=== PATIENT | female | born 1950 | race Caucasian/White ===

== ENCOUNTER 2021-01-28 15:17 | Inpatient (IN) | payer SELFPAY ==
[~2021-01-28] VITALS: Ht 162.6 cm; Wt 97.1 kg
[2021-01-28] MEDS: ENOXAPARIN 40 MG/0.4 ML SYR SUBQ SCH (05:30)
[2021-01-28] MEDS: FUROSEMIDE 20 MG/2 ML VIAL IVP SCH ×2 (05:37→21:00)
[2021-01-28 15:17] VITALS: BP 142/72
--- NOTE | 2021-01-28 15:17 | NUR ---
BIBA to bed 02
--- NOTE | 2021-01-28 15:20 | NUR ---
70 y/o F BIBA from mobile home c/o SOB x 1.5 days worsening this morning. EMS states pt on home O2 2L by NC SpO2 88%, pt received 2 breathing tx 10mg Albuterol prior to arrival SpO2 96% @ 6L. Pt with 4-5 word sentences with accessory muscle use. Pt reports R flank and R back pain d/t SOB. Lung sounds bilateral wheezes upper lobes. Pt placed onto color television console monitor; tachycardia @ 114, RR 39. Pt on 6L by NC SpO2 96%. Pt denies chest pain, fever, chills, abdominal pain, nausea, vomiting. Bed locked in lowest position, side rails x 2 for pt safety. PMH: DM, HTN, lung cancer, asthma, seizures Meds: dilantin, phenobarbital NKDA
--- NOTE | 2021-01-28 15:20 | NUR ---
RAD at bedside
[2021-01-28] MEDS ORDERED: ALBUTEROL HFA MDI 90 MCG/ACTUATION 8 GM INH ONE (15:25)
[2021-01-28] MEDS ORDERED: IPRATROPIUM 0.02% 0.5 MG/2.5 ML NEBU INH ONE (15:25)
[2021-01-28] MEDS ORDERED: DEXAMETHASONE 10 MG/ML VIAL IVP ONE (15:25)
[2021-01-28] MEDS ORDERED: ALBUTEROL 0.083% 2.5 MG/3 ML NEBU INH ONE ×3 (15:30→19:55)
--- NOTE | 2021-01-28 15:30 | NUR ---
EMT at bedside for EKG
--- NOTE | 2021-01-28 15:37 | NUR ---
[facility] THERAPY AND RESPIRATORY DRUGS GIVEN ORDERED
--- NOTE | 2021-01-28 15:45 | NUR ---
RT states pt on 5L by NC at this time. SpO2 97% on 5L.
--- NOTE | 2021-01-28 15:50 | NUR ---
Unable to obtain IV access. Dr. Dent made aware and received verbal order to give Decadron IM.
--- NOTE | 2021-01-28 16:11 | NUR ---
ULTRASOUND AND LAB AT PATIENT BEDSIDE
[2021-01-28] MEDS ORDERED: VANCOMYCIN 1,000 MG in DEXTROSE 5% 250 ML IV ONE (16:25)
[2021-01-28] MEDS ORDERED: CEFEPIME 1,000 MG in DEXTROSE 5% 50 ML IV ONE (16:25)
--- NOTE | 2021-01-28 16:25 | NUR ---
Ultrasound guided IV unsuccessful at this time
--- NOTE | 2021-01-28 16:40 | NUR ---
gear milling machine set up operator and PA Roper at bedside for IV access
[2021-01-28] MEDS ORDERED: CEFEPIME 1,000 MG VIAL ONE (16:41)
[2021-01-28 17:01] LABS: BASOPHILS # (AUTO) 0.1 K/uL (0.00-0.22); BASOPHILS % (AUTO) 0.7 % (0.0-2.0); EOSINOPHILS % (AUTO) 0.3 % (0.0-4.0); HEMATOCRIT 38.9 % (36-48); HEMOGLOBIN 12.7 g/dL (12.0-16.0); LYMPHOCYTES # (AUTO) 0.9 K/uL (2.5-16.5); LYMPHOCYTES % (AUTO) 8.4 % (20.5-51.1); MEAN CORPUSCULAR HEMOGLOBIN 26 pg (27-31); MEAN CORPUSCULAR HGB CONC 33 g/dL (33-37); MEAN CORPUSCULAR VOLUME 80.3 fL (80-94); MONOCYTES # (AUTO) 0.9 K/uL (0.8-1.0); MONOCYTES % (AUTO) 8.7 % (1.7-9.3); NEUTROPHILS # (AUTO) 8.4 K/uL (1.8-7.7); NEUTROPHILS % (AUTO) 81.9 % (42.2-75.2); PLATELET COUNT (AUTO) 483 K/uL (140-450); RED BLOOD CELL COUNT(AUTO) 4.85 MIL/uL (4.20-5.40); RED CELL DISTRIBUTION WIDTH 15.8 % (11.6-13.7); WHITE BLOOD COUNT (AUTO) 10.3 K/uL (4.8-10.8)
--- NOTE | 2021-01-28 17:20 | NUR ---
Patient with increased labored breathing, tachpneic at 39. RT paged and Dr. Dent made aware.
[2021-01-28] MEDS ORDERED: VANCOMYCIN 1,000 MG VIAL ONE (17:22)
--- NOTE | 2021-01-28 17:23 | NUR ---
Dr. Dent reevaluating patient at bedside
--- NOTE | 2021-01-28 17:27 | NUR ---
RT AT PATIENT BEDSIDE FOR BIPAP
[2021-01-28 17:32] LABS: ALBUMIN 2.7 g/dL (3.4-5.0); ANION GAP 16.3 (8-16); CARBON DIOXIDE 21.9 mmol/L (21-32); CREATININE 0.6 mg/dL (0.6-1.3); POTASSIUM 4.2 mmol/L (3.5-5.1); TOTAL BILIRUBIN 0.2 mg/dL (0.0-1.0)
[2021-01-28 17:33] VITALS: BP 128/50
--- NOTE | 2021-01-28 17:35 | NUR ---
RT states patient fighting BiPAP mask. SpO2 96% on mask at this time. Dr. Dent made aware and verbal order received for Ativan 1mg IVP.
[2021-01-28] MEDS ORDERED: LORazepam 2 MG/ML VIAL IVP ONE (17:40)
[2021-01-28] MEDS ORDERED: LORazepam 2 MG/ML VIAL ONE (17:40)
[2021-01-28] MEDS ORDERED: MAG SULF 2000 MG/WATER PREMIX 50 ML IV ONE (17:50)
--- NOTE | 2021-01-28 17:57 | NUR ---
[facility] THERAPY AND RESPIRATORY DRUGS ORDERED VIA INLINE
[2021-01-28] MEDS ORDERED: AZITHROMYCIN 500 MG in DEXTROSE 5% 250 ML IV ONE (18:05)
[2021-01-28] MEDS ORDERED: NACL 0.9% 1,000 ML IV ONE (18:40)
--- NOTE | 2021-01-28 18:50 | NUR ---
Vancomycin paused with ~175ml left to start NS BOLUS & Mg.
--- NOTE | 2021-01-28 18:55 | NUR ---
LAB COLLECTING SPECIMENS AT BEDSIDE
[2021-01-28 19:09] VITALS: BP 105/61
[2021-01-28] MEDS ORDERED: MAG SULF 2000 MG/WATER PREMIX 50 ML IV SCH (19:20)
[2021-01-28] MEDS ORDERED: ALBUTEROL SULFATE/IPRATROPIU 3 ML SOL IH SCH (19:20)
[2021-01-28] MEDS ORDERED: ALBUTEROL SULFATE/IPRATROPIU 3 ML SOL IH PRN ×2 (19:20→21:45)
--- NOTE | 2021-01-28 19:23 | NUR ---
Pt report given to HUONG ONEIL. Transfer of care at this time.
--- NOTE | 2021-01-28 19:23 | NUR ---
Received report from Andra FONG for continuity of care
--- NOTE | 2021-01-28 19:24 | NUR ---
Patient appears to be resting comfortably in bed-- high fowlers, eyes closed with bipap going. Fluids and medications runnin through the left wrist. AAOx4. patient has increased RR up to 40s. Patient on monitor, safety measures are in place, and will continue to monitor patient.
[2021-01-28] MEDS ORDERED: POTASSIUM CHLORIDE 10 MEQ TABER PO PRN (19:30)
[2021-01-28] MEDS ORDERED: HYDROcodone/APAP 5/325 MG 1 TAB TAB PO PRN (19:30)
[2021-01-28] MEDS ORDERED: MAG SULF 2000 MG/WATER PREMIX 50 ML IV PRN (19:30)
[2021-01-28] MEDS ORDERED: MORPHINE SULFATE 2 MG/ML SYR IVP PRN (19:30)
[2021-01-28] MEDS ORDERED: DOCUSATE SODIUM 100 MG GELCAP PO PRN (19:30)
[2021-01-28] MEDS ORDERED: SODIUM PHOS / POTASSIUM PHOS 1 PKT PDR PO PRN (19:30)
[2021-01-28] MEDS ORDERED: ZOLPIDEM 5 MG TAB PO PRN (19:30)
[2021-01-28] MEDS ORDERED: ONDANSETRON 4 MG/2 ML VIAL IVP PRN (19:30)
[2021-01-28] MEDS: NACL 0.9% 1,000 ML IV SCH (19:30)
--- NOTE | 2021-01-28 19:32 | NUR ---
Report and transfer of care endorsed to HUONG Betancourt.
[2021-01-28] MEDS ORDERED: AZITHROMYCIN 500 MG INJ VIAL IV ONE (19:33)
--- NOTE | 2021-01-28 19:42 | NUR ---
patient pulled off bipap and screaming, patient is agitated, further increase respirations to 50s, patient desaturated to 79% RA when bipap was off. Patient unconsolable and started c/o c/p sudden onset-- Called Lisseth APARICIO. Addendum: 01/28/21 at 2200 by [email or web address] patient sudden change in condition
--- NOTE | 2021-01-28 19:53 | NUR ---
Received orders from Lisseth APARICIO-- nitro sublingual q5mins up until 3 doses, lovonox 40mg subq BID, EKG, and consult with Dr. Silverio Pederson.
[2021-01-28] MEDS ORDERED: NITROGLYCERIN 0.4 MG TAB SL ONE (19:58)
[2021-01-28] MEDS ORDERED: NITROGLYCERIN 0.4 MG TAB SL PRN (20:05)
[2021-01-28] MEDS: LORazepam 2 MG/ML VIAL IM/IVP PRN ×2 (20:22→22:36)
--- NOTE | 2021-01-28 20:24 | NUR ---
patient agitated, increased WOB, refusing use of bipap, and patient in the way of interventions.
[2021-01-28] MEDS ORDERED: INTUBATION KIT MC ONE (20:33)
[2021-01-28] MEDS ORDERED: ETOMIDATE 20 MG/10 ML VIAL IVP SCH (20:35)
[2021-01-28] MEDS ORDERED: ROCURONIUM 50 MG/5 ML VIAL IV SCH (20:35)
[2021-01-28 20:40] LABS: PROTHROMBIN TIME 10.6 secs (10.8-13.4)
--- NOTE | 2021-01-28 20:44 | NUR ---
intubated patient, and tube in at this time. called xray for placement.
--- NOTE | 2021-01-28 20:50 | NUR ---
Patient will be admitted to care of Lisseth APARICIO . Admited to ICU. Will go to room 2 ICU. Belongings list completed. Report to Malini BORJA, and Osvaldo BORJA.
[2021-01-28 20:52] LABS: PHOSPHORUS 2.6 mg/dL (2.5-4.9); THYROID STIMULATING HORMONE 1.1 uIU/mL (0.34-3.74)
[2021-01-28] MEDS: PIPERACILLIN/TAZOBACTAM 3.375 GM in DEXTROSE 5% 50 ML IV SCH (21:00)
--- NOTE | 2021-01-28 21:00 | NUR ---
RECEIVED REPORT FROM NIGHT CHHA. PT ETT TO VENT FIO2 @100%, VT @450, RATE @20, AND PEEP @8. 24G TO RIGHT WRIST. TWO OPEN WOUNDS TO RIGHT INGUINAL AREA. PROTRUSION VISIBLE IN OPENING OF VAGINA. +4 PITTING EDEMA TO BLE. INITIAL ASSESSMENT COMPLETED. SAFETY MEASURES IN PLACE. BED IN LOWEST POSITION AND CALL LIGHT WITHIN REACH. WILL CONTINUE TO MONITOR
[2021-01-28] MEDS ORDERED: PROPOFOL 1000 MG/100 ML PREMIX 100 ML IV ONE (21:05)
--- NOTE | 2021-01-28 21:10 | NUR ---
AT BEDSIDE, PT WAS UNCOOPERATIVE WITH BIPAP. PT WAS STILL IN RESPIRATORY DISTRESSED. DR. OVIEDO WAS CALLED TO BEDSIDE AND PT WAS INTUBATED. PT WAS SUCCESSFULLY INTUBATED @ 2043 WITH ETT SIZE 8.0 AND SECURE @ 21CM @ TEETH. CXR TAKEN AT BEDSIDE, ETT SEEM TO BE IN GOOD POSITION. WILL WAIT FOR OFFICIAL INTERPRETATION. PT WAS TRANSPORTED TO ICU. VENTILATION AND OXYGENATION WAS PROVIDED VIA BVM. PT WAS CONNECTED TO VENT IN ICU. VENT PLUGGED IN RED OUTLET. ALARM SET AND AUDIBLE. WILL CONTINUE TO MONITOR.
[2021-01-28 23:00] VITALS: BP 99/48
[2021-01-28] MEDS: ALBUTEROL SULFATE/IPRATROPIU 3 ML SOL IH SCH (23:01)
--- NOTE | 2021-01-28 23:34 | NUR ---
ER MD AND RT AT BEDSIDE FOR CENTRAL LINE PLACEMENT.
[2021-01-29] VITALS (29 sets, daily range): BP systolic 84–134; BP diastolic 34–70
--- NOTE | 2021-01-29 | NUR ---
RAD AT BEDSIDE FOR CHEST XRAY. WILL CONTINUE TO MONITOR.
--- NOTE | 2021-01-29 01:25 | NUR ---
TITRATED PT'S FiO2 FROM 100% TO 70%. SPO2 100%. NO RESPIRATORY DISTRESSED NOTED AT THIS TIME. PT TOLERATING WELL AT THIS MOMENT. RN NOTIFIED ABOUT CHANGES. WILL CONTINUE TO MONITOR.
[2021-01-29] MEDS ORDERED: PIPERACILLIN/TAZOBACTAM 3.375 GM VIAL IV ONE (02:05)
[2021-01-29] MEDS: PIPERACILLIN/TAZOBACTAM 3.375 GM in DEXTROSE 5% 50 ML IV SCH ×3 (03:00→20:22)
[2021-01-29] MEDS ORDERED: fentaNYL citrate 1 MG in NACL 0.9% 80 ML IV PRN (03:25)
[2021-01-29] MEDS ORDERED: NOREPINEPHRINE 4 MG/4 ML VIAL IV ONE ×2 (03:32→23:30)
[2021-01-29] MEDS ORDERED: fentaNYL citrate 0.05 MG/ML VIAL ONE (03:38)
[2021-01-29] MEDS: ALBUTEROL SULFATE/IPRATROPIU 3 ML SOL IH SCH ×6 (04:22→23:00)
--- NOTE | 2021-01-29 04:42 | NUR ---
TITRATED FiO2 FROM 70% TO 60%. PT TOLERATING WELL AT THIS TIME. RN NOTIFIED. WILL CONTINUE TO MONITOR PT
[2021-01-29] MEDS: NACL 0.9% 1,000 ML IV SCH ×2 (05:30→15:30)
[2021-01-29 06:42] LABS: ALBUMIN 2.3 g/dL (3.4-5.0); ANION GAP 13.1 (8-16); CARBON DIOXIDE 24.7 mmol/L (21-32); CREATININE 0.6 mg/dL (0.6-1.3); MAGNESIUM 2.2 mg/dL (1.8-2.4); POTASSIUM 3.8 mmol/L (3.5-5.1); TOTAL BILIRUBIN 0.2 mg/dL (0.0-1.0)
[2021-01-29 07:26] LABS: BASOPHILS # (AUTO) 0.1 K/uL (0.00-0.22); BASOPHILS % (AUTO) 0.4 % (0.0-2.0); EOSINOPHILS # (AUTO) 0.1 K/uL (0-0.4); EOSINOPHILS % (AUTO) 0.7 % (0.0-4.0); HEMATOCRIT 35.3 % (36-48); HEMOGLOBIN 11.3 g/dL (12.0-16.0); LYMPHOCYTES # (AUTO) 1.6 K/uL (2.5-16.5); MEAN CORPUSCULAR HEMOGLOBIN 26 pg (27-31); MEAN CORPUSCULAR HGB CONC 32 g/dL (33-37); MEAN CORPUSCULAR VOLUME 79.9 fL (80-94); MONOCYTES # (AUTO) 1.3 K/uL (0.8-1.0); MONOCYTES % (AUTO) 9.7 % (1.7-9.3); NEUTROPHILS # (AUTO) 10.1 K/uL (1.8-7.7); NEUTROPHILS % (AUTO) 77.2 % (42.2-75.2); PLATELET COUNT (AUTO) 388 K/uL (140-450); RED BLOOD CELL COUNT(AUTO) 4.42 MIL/uL (4.20-5.40); RED CELL DISTRIBUTION WIDTH 15.8 % (11.6-13.7); WHITE BLOOD COUNT (AUTO) 13.1 K/uL (4.8-10.8)
--- NOTE | 2021-01-29 07:36 | NUR ---
RECEIVED BEDSIDE REPORT FROM JACEK BORJA FOR CONTINUITY OF CARE. PT IS SEDATED, LYING SUPINE IN THE BED. EYES CLOSED, PERRL 3MM. NGT TO R NARE IN PLACE. ETT TO VENT FIO2 40%, TV 400, R 20, PEEP 8. RIJ TRIPLE LUMEN CENTRAL LINE IN PLACE, PATENT, INTACT, NO S/S OF INFECTION. RUNNING PROPOFOL AT 45 MCG/KG/MIN, FENTANYL AT 0.5 MCG/KG/H, LEVOPHED AT 9 MCG/MIN, AND NS AT 5 ML/H. LUNG SOUNDS CLEAR THROUGHOUT. HEART SOUNDS S1&2. BOWEL SOUNDS ACTIVE IN ALL 4 QUADRANTS. NO F/C IN PLACE. 2 INGUINAL WOUNDS ON R SIDE, DRESSINGS INTACT. BRUISES TO BUE. GENERALIZED WEAKNESS BUE AND BLE. +4 PITTING EDEMA BLE. INITIAL ASSESSMENT COMPLETED. ALL SAFETY PRECAUTIONS MET. STANDARD PRECAUTIONS IN PLACE. CALL LIGHT WITHIN REACH. WILL CONTINUE TO MONITOR.
--- NOTE | 2021-01-29 07:36 | NUR ---
REPORT GIVEN TO DAYSHIFT RN FOR CONTINUITY OF CARE.
[2021-01-29] MEDS: PROPOFOL 1000 MG/100 ML PREMIX 100 ML IV PRN ×3 (07:50→19:01)
[2021-01-29] MEDS ORDERED: DEXTROSE 50% 50 ML SYR IVP PRN (08:25)
--- NOTE | 2021-01-29 08:30 | NUR ---
SEEN AND EXAMINED BY DR ANGULO.
[2021-01-29] MEDS: FUROSEMIDE 20 MG/2 ML VIAL IVP SCH ×2 (09:02→20:22)
[2021-01-29] MEDS: ENOXAPARIN 40 MG/0.4 ML SYR SUBQ SCH ×2 (09:03→20:26)
--- NOTE | 2021-01-29 09:30 | NUR ---
SEEN AND EXAMINED BY DR ESPINOSA.
[2021-01-29] MEDS ORDERED: ALBUMIN HUMAN 5 % 500 ML IV ONE (09:35)
--- NOTE | 2021-01-29 11:30 | NUR ---
BSG 150, NO INSULIN COVERAGE NEEDED AT THIS TIME.
[2021-01-29] MEDS: BLOOD GLUCOSE MONITORING 1 DEV DEV FS SCH ×3 (11:49→21:00)
[2021-01-29] MEDS ORDERED: ECOTRIN 81 MG TABEC PO SCH (12:15)
[2021-01-29] MEDS ORDERED: fentaNYL citrate - 50mL vial 2.5 MG in NACL 0.9% 200 ML IV PRN (13:10)
--- NOTE | 2021-01-29 13:30 | NUR ---
PT SEDATED IN THE BED. NO SIGNS OF ACUTE DISTRESS. ALL NEEDS ARE MET AT THIS TIME. WILL CONTINUE TO MONITOR.
--- NOTE | 2021-01-29 13:30 | NUR ---
F/C PLACED PER MD ORDER. LEILANI BORJA ASSISTED WITH F/C INSERTION, WOUND ASSESSMENT, AND CHANGED THE DRESSING ON THE INGUINAL WOUNDS.
--- NOTE | 2021-01-29 14:00 | NUR ---
WOUND CARE EVALUATION NOTES: REASON FOR EVALUATION: RIGHT GROIN OPEN WOUNDS WOUND ASSESSMENT COMPLETED ON THIS 70 Y/O FEMALE ADMITTED TO ICU UNIT FOR ACUTE HYPOXEMIC RESPIRATORY FAILURE. PATIENT IS FROM HOME. PAST MEDICAL HISTORY INCLUDES LUNG CANCER, ASTHMA, DIABETES, HYPERTENSION. ALL ABOVE INFORMATION WAS OBTAINED FROM THE ADMISSION H&P. LABS ARE WBC 13.1, H/H 11.3/35.3, GLUCOSE 169, ALBUMIN 2.7. PATIENT IS AAOX0, INTUBATED AND SEDATED. SKIN IS WARM TO TOUCH. HAS GENERALIZED BILATERAL UPPER EXTREMITY AND LOWER EXTREMITIES EDEMA. ORAL MUCOSAL MEMBRANES DRY. RIGHT UPPER PICC LINE IN PLACE, DRESSING DRY AND INTACT. TOTAL CARE PATIENT. PLAN OF CARE AND PRESSURE PREVENTATIVE MEASURES DISCUSSED WITH PRIMARY RN. PATIENT SEDATED, UNABLE TO PROVIDE TEACHINGS. PATIENT ADMITTED WITH RIGHT GROIN OPEN WOUNDS. COMORBIDITIES RELATED TO FURTHER SKIN BREAKDOWN SUCH IMPAIRED OR DECREASED MOBILITY AND DECREASED FUNCTIONAL ABILITY, LOW ALBUMIN LEVEL, SEDATION, INTUBATED, AND HISTORY OF LUNG CANCER. INTEGUMENTARY: - RIGHT LATERAL INGUINAL OPEN WOUND MEASURING 3.5 X 3 X 2 CM, WOUND BED PINKISH-WHITE, MODERATE PRULULENT DRAINAGE WITH MILD ODOR. [place]APHA-WOUND WHITE, INTACT WELL-DEFINED BORDERS. -RIGHT MEDIAL INGUINAL OPEN WOUND MEASURING 5.0 X 1.0 X 0.5 CM, WOUND BED PINKISH-WHITE, MODERATE PRULULENT DRAINAGE WITH MILD ODOR. [place]APHA-WOUND WHITE, INTACT WELL-DEFINED BORDERS. RECOMMENDATIONS: - RIGHT LATERAL INGUINAL OPEN WOUND MEASURING - CLEANSE WITH WITH NS, PAT DRY, LIGHTLY PACK WITH ALGINATE ROPE DRESSING, COVER WITH DRY DRESSINGS, AND SECURE WITH ISLAND DRESSING DAILY AND PRN IF SOILED. -RIGHT MEDIAL INGUINAL OPEN WOUND - CLEANSE WITH WITH NS, PAT DRY, LIGHTLY PACK WITH ALGINATE ROPE DRESSING, COVER WITH DRY DRESSINGS, AND SECURE WITH ISLAND DRESSING DAILY AND PRN IF SOILED. - OFFLOAD BILATERAL HEELS BY PLACING BILATERAL HEEL PROTECTORS. - TURN AND REPOSITION PATIENT Q2H TO LEFT AND RIGHT SIDE TO OFFLOAD SACRALCOCCYX. - ASSESS AND MONITOR SKIN CONDITION DURING POSITION CHANGE. PLEASE PAY ATTENTION TO SACRALCOCCYX AND HEELS. - KEEP SKIN DRY AND CLEAN AT ALL TIMES. - RD CONSULT RECOMMENDATIONS DISCUSSED WITH PRIMARY RN. WILL FOLLOW-UP PATIENT Q7-10 DAYS AND PRN. PLEASE CONTACT WOUND CARE NURSE FOR ANY CONCERNS AND CHANGES IN WOUND CONDITION.
--- NOTE | 2021-01-29 14:23 | NUR ---
OBTAINED TELEPHONE CONSENT, FROM ALEJANDRO MOULTON (SON), FOR CONTRAST MEDIUM FOR CT SCAN. WITNESSED BY REGISTRY NURSE KARIN BORJA.
--- NOTE | 2021-01-29 14:40 | NUR ---
SEEN AND EXAMINED BY DR MARINA. Addendum: 01/29/21 at 1510 by Megan Wadsworth RN SEEN AND EXAMINED BY DR MARINA. HE REMOVED THE PACKED DRESSING, AND CHECKED THE WOUND. MENTIONED POSSIBLE BIOPSY.
--- NOTE | 2021-01-29 14:45 | NUR ---
SEEN AND EXAMINED BY DR ANGULO.
--- NOTE | 2021-01-29 16:30 | NUR ---
PT SEDATED IN THE BED. NO SIGNS OF ACUTE DISTRESS. ALL NEEDS ARE MET AT THIS TIME. WILL CONTINUE TO MONITOR.
[2021-01-29] MEDS: INSULIN LISPRO SLIDING SCALE 100 UNITS/ML VIAL SUBQ PRN (16:42)
[2021-01-29] MEDS: AZITHROMYCIN 500 MG in DEXTROSE 5% 250 ML IV SCH (17:29)
[2021-01-29] MEDS: ACETAMINOPHEN 325 MG TAB PO PRN (17:57)
--- NOTE | 2021-01-29 18:00 | NUR ---
PT SEDATED IN THE BED. NO SIGNS OF ACUTE DISTRESS. ALL NEEDS ARE MET AT THIS TIME. WILL CONTINUE TO MONITOR.
--- NOTE | 2021-01-29 19:30 | NUR ---
ASSUMED CARE OF PT.INITIAL ASSESSMENT COMPLETED.ST/SR NOTED ON MONITOR.PT SEDATED.W/TLC TO RT IJ INTACT.GOOD BLOOD RETURN TO ALL 3 PORTS INFUSING FENTANYL 0.5MCG/KG/HR,NS AT 5ML/HR ,LEVOPHED 16 MG IN 250ML D5W AT 11 MCG/MIN.AND PROPOFOL AT 35 MCG/KG/MIN.DRY WT 89 KG.W/NGT TO RT NARES INTACT.CLAMPED.PT MAINTAINED ON NPO.W/CARDOZA CATHETER TO BSD DRAINING SMALL AMT OF YELLOW URINE.W/DRY AND INTACT DRESSING TO RT GROIN,2 OPEN WOUNDS NOTED.W/PITTING EDEMA TO BLE +2 ALSO NOTED.FLACC 0.SAFETY PRECAUTION IN PLACE.BED IN LOW POSITION.CALL LIGHT WITHIN REACH.WILL CONTINUE TO CLOSELY MONITOR PT Addendum: 01/30/21 at 0259 by Taylor Gutierrez RN RT AND LEFT INNER THIGH REDDENED AND WARM TO TOUCH
--- NOTE | 2021-01-29 21:00 | NUR ---
PT TAKEN TO CT FOR CT OF ABD/PELVIS AND CT ANGIO ORDERED.W/RT AT BEDSIDE.PT TOLERATED PROCEDURE.
--- NOTE | 2021-01-29 22:30 | NUR ---
VISITED BY SON ALEJANDRO,UPDATED ON PTS PRESENT CONDITION.QUESTIONS ANSWERED. PTS SON ONLY LOOKING THROUGH THE WINDOW, PER PTS SON, VACCINATION STATUS(PNA AND FLU SHOTS UNKNOWN) ALL HE KNOWS IS THAT PT DID NOT GET VACCINATED FOR COVID.
[2021-01-29] MEDS: NOREPINEPHRINE 16 MG in DEXTROSE 5% 250 ML IV PRN (23:38)
[2021-01-30] VITALS (28 sets, daily range): BP systolic 60–111; BP diastolic 49–98
--- NOTE | 2021-01-30 00:10 | NUR ---
ORAL CARE USING VAP KIT RENDERED.PT ON LOVENOX FOR DVT PROPHYLAXIS.NO GI PROPHYLAXIS,WILL NOTIFY
[2021-01-30] MEDS: PROPOFOL 1000 MG/100 ML PREMIX 100 ML IV PRN ×5 (00:38→20:12)
[2021-01-30] MEDS: GAUZE TP SCH ×2 (00:55→12:43)
[2021-01-30] MEDS: NACL 0.9% 1,000 ML IV SCH ×3 (01:30→22:23)
--- NOTE | 2021-01-30 02:00 | NUR ---
BP 82/54; RECHECKED 87/54 LEVOPHED INCREASED ORDERED Addendum: 01/31/21 at 0244 by Taylor Gutierrez RN ERROR WRONG DATE
--- NOTE | 2021-01-30 02:58 | NUR ---
PTS CONDITION REMAINS UNCHANGED.ETT TO VENT FIO2 50% AT THIS TIME.FLACC 0
[2021-01-30] MEDS: ALBUTEROL SULFATE/IPRATROPIU 3 ML SOL IH SCH ×6 (03:10→23:35)
--- NOTE | 2021-01-30 04:09 | NUR ---
Pt received on vent. FiO2 increased to 45% post transport to CT scan. At 0045 FiO2 increased to 50% to improve SpO2. Pt sangita change well. No further changes made.
[2021-01-30] MEDS: PIPERACILLIN/TAZOBACTAM 3.375 GM in DEXTROSE 5% 50 ML IV SCH ×3 (04:21→20:07)
--- NOTE | 2021-01-30 04:30 | NUR ---
MORNING CARE DONE.ORAL CARE RENDERED.FLACC 0.REPOSITIONED
[2021-01-30] MEDS: BLOOD GLUCOSE MONITORING 1 DEV DEV FS SCH ×4 (06:22→20:14)
[2021-01-30 06:23] LABS: BASOPHILS # (AUTO) 0.1 K/uL (0.00-0.22); BASOPHILS % (AUTO) 0.7 % (0.0-2.0); EOSINOPHILS # (AUTO) 0.3 K/uL (0-0.4); EOSINOPHILS % (AUTO) 2.4 % (0.0-4.0); HEMATOCRIT 31.9 % (36-48); HEMOGLOBIN 10.4 g/dL (12.0-16.0); LYMPHOCYTES # (AUTO) 1.4 K/uL (2.5-16.5); LYMPHOCYTES % (AUTO) 11.4 % (20.5-51.1); MEAN CORPUSCULAR HEMOGLOBIN 26 pg (27-31); MEAN CORPUSCULAR HGB CONC 33 g/dL (33-37); MEAN CORPUSCULAR VOLUME 79.7 fL (80-94); MONOCYTES # (AUTO) 1.2 K/uL (0.8-1.0); NEUTROPHILS # (AUTO) 9.1 K/uL (1.8-7.7); NEUTROPHILS % (AUTO) 75.5 % (42.2-75.2); PLATELET COUNT (AUTO) 459 K/uL (140-450); RED CELL DISTRIBUTION WIDTH 15.9 % (11.6-13.7); WHITE BLOOD COUNT (AUTO) 12.1 K/uL (4.8-10.8)
--- NOTE | 2021-01-30 06:23 | NUR ---
PT STILL SEDATED ORDERED.FLACC 0
[2021-01-30 07:09] LABS: ALBUMIN 2.5 g/dL (3.4-5.0); ANION GAP 15.2 (8-16); CARBON DIOXIDE 26.3 mmol/L (21-32); CREATININE 0.6 mg/dL (0.6-1.3); MAGNESIUM 1.8 mg/dL (1.8-2.4); POTASSIUM 3.5 mmol/L (3.5-5.1); TOTAL BILIRUBIN 0.5 mg/dL (0.0-1.0)
--- NOTE | 2021-01-30 07:20 | NUR ---
REPORT RECEIVED, PT VENTED VIA ETT WITH VENT SETTING AC 20 PEEP 5 FIO2 50 %, SATURATING AROUND 90SH %, WITH NGT VIA RT NARES PATENT, INTACT ,WITH CARDOZA CATHETER TO DRAINAGE BAG OF KENAN COLORED URINE, ON FENTANYL DRIP AT 0.5 MCG/KG/HR, PROPOFOL AT 35 MCG/KG/MIN, CONTINUE TO OBSERVE.
--- NOTE | 2021-01-30 08:18 | NUR ---
PT HR SHOWED SVT UP TO 180/MINUTE, BP-107/51 O2 SAT-90%, PT NOT IN DISTRESS, VAGAL MANEUVER DONE, NO AVAIL DR LEROY INFORMED BY PHONE WITH ORDER OF AMIODARONE PROTOCOL.
[2021-01-30] MEDS ORDERED: AMIODARONE 450 MG in DEXTROSE 5% 250 ML IV SCH (08:30)
[2021-01-30] MEDS ORDERED: AMIODARONE 150 MG in DEXTROSE 5% 100 ML IV ONE (08:30)
[2021-01-30] MEDS: ENOXAPARIN 40 MG/0.4 ML SYR SUBQ SCH ×2 (09:21→20:09)
[2021-01-30] MEDS: ECOTRIN 81 MG TABEC PO SCH (09:22)
[2021-01-30] MEDS: FUROSEMIDE 20 MG/2 ML VIAL IVP SCH ×2 (09:22→20:07)
--- NOTE | 2021-01-30 09:33 | NUR ---
PATIENT HAS BEEN SCREENED AND CATEGORIZED HIGH NUTRITION RISK. PATIENT WILL BE SEEN WITHIN 1-2 DAYS OF ADMISSION. 01/30/21-02/01/21 MANOJ LARES MS, RDN
--- NOTE | 2021-01-30 10:00 | NUR ---
SEEN BY DR WALSH , NOTED ALL PARAMETERS, CONTINUE PLAN OF CARE
[2021-01-30] MEDS: INSULIN LISPRO SLIDING SCALE 100 UNITS/ML VIAL SUBQ PRN ×3 (12:42→20:15)
--- NOTE | 2021-01-30 13:45 | NUR ---
DR LEROY HERE, SEEN PT, NOTED TO HIM THAT BP DROPPED TO LOW 70/65, HR STABILIZED TO 94 SR ON THE MONITOR, AMIODARONE DRIP DISCONTINUED , DR LEROY CHANGED TO ORAL PER NGT.
--- NOTE | 2021-01-30 14:30 | NUR ---
DR ANGULO INFORMED OF THE GI PROPHYLAXIS NEEDED , TO START ON PROTONIX 40 MGS IV DAILY
[2021-01-30] MEDS: AMIODARONE 200 MG TAB PO SCH ×2 (15:34→20:08)
--- NOTE | 2021-01-30 16:00 | NUR ---
AFTERNOON CARE DONE, ALL CARES ATTENDED, NGT FEEDING WELL TOLERATED, CONTINUE TO OBSERVE
[2021-01-30] MEDS: NOREPINEPHRINE 16 MG in DEXTROSE 5% 250 ML IV PRN (16:47)
[2021-01-30] MEDS: AZITHROMYCIN 500 MG in DEXTROSE 5% 250 ML IV SCH (17:54)
--- NOTE | 2021-01-30 18:50 | NUR ---
PT STILL VENTED VIA ETT WITH FIO2 70 %, PEEP OF 8 TV 400, CONTINUE TO OBSERVE. STILL WITH SAME DRIP OF FENTANYK AND PROPOFOL OF 35 MCG/KG/MIN.
--- NOTE | 2021-01-30 19:20 | NUR ---
ASSUMED CARE OF PT.INITIAL ASSESSMENT COMPLETED.SR NOTED ON MONITOR.PT SEDATED.W/TLC TO RT IJ INTACT.GOOD BLOOD RETURN TO ALL 3 PORTS INFUSING FENTANYL 0.5MCG/KG/HR,NS AT 100ML/HR ,LEVOPHED 16 MG IN 250ML D5W AT 14 MCG/MIN.AND PROPOFOL AT 35 MCG/KG/MIN.DRY WT 89 KG.W/NGT TO RT NARES INTACT.NO RESIDUALS NOTED.ON NGT FEEDING VITAL AF 1.2 AT 30ML/HR WITH WATER FLUSH ORDERED.W/CARDOZA CATHETER TO BSD DRAINING SMALL AMT OF YELLOW URINE W/SEDIMENTS.W/DRY AND INTACT DRESSING TO RT GROIN,2 OPEN WOUNDS NOTED.W/PITTING EDEMA TO BLE +2 ALSO NOTED,INNER THIGHS REDDENED AND WARM TO TOUCH.FLACC 0.SAFETY PRECAUTION IN PLACE.BED IN LOW POSITION.CALL LIGHT WITHIN REACH.WILL CONTINUE TO CLOSELY MONITOR PT
--- NOTE | 2021-01-30 20:00 | NUR ---
ORAL CARE USING VAP KIT RENDERED.PT ON DAILY PROTONIX FOR GI PROPHYLAXIS AND LOVENOX FOR DVT PROPHYLAXIS.REPOSITIONED.FLACC 0
[2021-01-31] VITALS (27 sets, daily range): BP systolic 84–113; BP diastolic 50–93
--- NOTE | 2021-01-31 | NUR ---
oral care done.repositioned.flacc 0.afebrile
[2021-01-31] MEDS: GAUZE TP SCH ×2 (00:26→12:36)
[2021-01-31] MEDS: ALBUTEROL SULFATE/IPRATROPIU 3 ML SOL IH SCH ×6 (00:56→19:45)
[2021-01-31] MEDS: PROPOFOL 1000 MG/100 ML PREMIX 100 ML IV PRN ×4 (01:30→16:32)
--- NOTE | 2021-01-31 02:00 | NUR ---
BP 82/54; RECHECKED 87/54 LEVOPHED INCREASED ORDERED
[2021-01-31] MEDS: PIPERACILLIN/TAZOBACTAM 3.375 GM in DEXTROSE 5% 50 ML IV SCH ×3 (04:26→21:01)
--- NOTE | 2021-01-31 04:34 | NUR ---
PT HAS EXCESSIVE PIPs AND MODE WAS CHANGED TO PC 30 +8 f20 Ti 0.75 PT RECEIVING APPROX 7mL/Kg Vt (350-380) FIO2 CURRENTLY @ 100% WILL CONTINUE TO MONITOR
--- NOTE | 2021-01-31 04:47 | NUR ---
MORNING CARE DONE.ALL LINENS CHANGED.DRESSING TO RT INGUINAL AREA OPEN WOUND CHANGED.SEROSANGUINEOUS DRAINAGE NOTED TO BOTH WOUNDS.FLACC 0
[2021-01-31] MEDS: BLOOD GLUCOSE MONITORING 1 DEV DEV FS SCH ×3 (05:10→17:06)
[2021-01-31] MEDS: INSULIN LISPRO SLIDING SCALE 100 UNITS/ML VIAL SUBQ PRN ×3 (05:13→17:08)
[2021-01-31 06:32] LABS: BASOPHILS % (AUTO) 0.3 % (0.0-2.0); EOSINOPHILS # (AUTO) 0.2 K/uL (0-0.4); EOSINOPHILS % (AUTO) 1.4 % (0.0-4.0); HEMOGLOBIN 10.6 g/dL (12.0-16.0); LYMPHOCYTES # (AUTO) 1.2 K/uL (2.5-16.5); LYMPHOCYTES % (AUTO) 8.7 % (20.5-51.1); MEAN CORPUSCULAR HEMOGLOBIN 26 pg (27-31); MEAN CORPUSCULAR HGB CONC 32 g/dL (33-37); MEAN CORPUSCULAR VOLUME 80.8 fL (80-94); MONOCYTES # (AUTO) 1.2 K/uL (0.8-1.0); MONOCYTES % (AUTO) 8.4 % (1.7-9.3); NEUTROPHILS # (AUTO) 11.7 K/uL (1.8-7.7); NEUTROPHILS % (AUTO) 81.2 % (42.2-75.2); PLATELET COUNT (AUTO) 518 K/uL (140-450); RED BLOOD CELL COUNT(AUTO) 4.09 MIL/uL (4.20-5.40); RED CELL DISTRIBUTION WIDTH 15.6 % (11.6-13.7); WHITE BLOOD COUNT (AUTO) 14.3 K/uL (4.8-10.8)
[2021-01-31 06:56] LABS: ALBUMIN 2.1 g/dL (3.4-5.0); CARBON DIOXIDE 27.8 mmol/L (21-32); CREATININE 0.7 mg/dL (0.6-1.3); MAGNESIUM 1.9 mg/dL (1.8-2.4); POTASSIUM 3.8 mmol/L (3.5-5.1); TOTAL BILIRUBIN 0.5 mg/dL (0.0-1.0)
--- NOTE | 2021-01-31 07:10 | NUR ---
REPORT RECEIVED ,PT VENTED VIA ETT WITH FIO2 OF 100%, AC MODE OF 20, STAURATING 92 %, WITH CONTINUOUS FEEDING VIA NGT RT NARES WELL TOLERATED, , PROPOFOL DRIP AT 35 MCG/KG/MIN, FENTANYL AT 1 MCG/KG/HR, TO KEEP RASS-3, WITH CARDOZA CATHETER PATENT CONNETCED TO DRAINAGE BAG , KENAN COLORED.
--- NOTE | 2021-01-31 08:00 | NUR ---
DR WALSH HERE, SEEN PT, NOTED ALL PARAMETERS, WITH ORDERS.
[2021-01-31] MEDS: NACL 0.9% 1,000 ML IV SCH ×3 (09:16→20:44)
[2021-01-31] MEDS: FUROSEMIDE 20 MG/2 ML VIAL IVP SCH ×2 (09:16→21:00)
[2021-01-31] MEDS: PANTOPRAZOLE 40 MG INJ VIAL IVP SCH (09:17)
[2021-01-31] MEDS: ECOTRIN 81 MG TABEC PO SCH (09:17)
[2021-01-31] MEDS: AMIODARONE 200 MG TAB PO SCH ×2 (09:18→21:00)
[2021-01-31] MEDS: ENOXAPARIN 40 MG/0.4 ML SYR SUBQ SCH ×2 (09:19→21:01)
[2021-01-31] MEDS: MIDAZOLAM MDV 100 MG in NACL 0.9% 80 ML IV PRN (09:21)
[2021-01-31] MEDS: NOREPINEPHRINE 16 MG in DEXTROSE 5% 250 ML IV PRN (09:24)
--- NOTE | 2021-01-31 11:00 | NUR ---
DR ANGULO HERE, SEEN PT, NOTED ALL PARAMETERS, CONTINUE PLAN OF CARE
--- NOTE | 2021-01-31 13:45 | NUR ---
SEEN AND EXAMINED BY DR JAIN, NOTED ALL PARAMETERS, CONTINUE PLAN OF CARE, FOR ECHO ORDERED BY SAME .
--- NOTE | 2021-01-31 16:00 | NUR ---
AFTERNOON CARE DONE, ALL CARES ATTENDED.
[2021-01-31] MEDS: AZITHROMYCIN 500 MG in DEXTROSE 5% 250 ML IV SCH (17:09)
--- NOTE | 2021-01-31 18:16 | NUR ---
PT STILL ON FIO2 OF 100 % AC MODE 0F 20 PEEP OF 12, O2 SATURATION ON THE 91SH, CONTINUE TO OBSERVE. STILL ON PROPOFOL DRIP WHICH WAS DEXREASED EARLIER DUE TO LOW BP, VERSED DRIP AT 1MG/HR AND FENTANYL DRIP AT 0.5 MCG/KG/HR, TO KEEP RASS-3. CONTINUE TO OBSERVE
--- NOTE | 2021-01-31 19:20 | NUR ---
RECEIVED REPORT FROM DAY SHIFT NURSE, [facility] CARE. PATIENT SEDATED, ETT TO VENT, SETTINGS AC/PV, VT 200, FIO2 100%, PEEP 12. RHONCHI BILATERAL LUNG SOUNDS PRESENT UPON AUSCULTATION. ORAL VAP CARE PROVIDED. RUNNING FENTANYL 0.5 MCG/KG/HR, PROPOFOL 25 MCG/KG/MIN, VERSED 1 MG/HR, LEVOPHED 21 MCG/MIN VIA R IJ CENTRAL LINE TLC. CARDOZA CATHETER IN PLACE. TEMPERATURE 97.1. NO SIGNS OF ACUTE DISTRESS. NG TUBE ON R NARES RUNNING VITAL A.F AT 30 ML/HR, RESIDUAL OF 50 ML. ALL SAFETY MEASURES IN PLACE. WILL CONTINUE TO MONITOR AND FOLLOW POC.
[2021-02-01] VITALS (32 sets, daily range): BP systolic 82–129; BP diastolic 53–87
[2021-02-01] MEDS: PROPOFOL 1000 MG/100 ML PREMIX 100 ML IV PRN ×2 (00:34→23:34)
[2021-02-01] MEDS: INSULIN LISPRO SLIDING SCALE 100 UNITS/ML VIAL SUBQ PRN ×4 (00:41→18:41)
[2021-02-01] MEDS: GAUZE TP SCH ×2 (01:00→13:00)
--- NOTE | 2021-02-01 01:15 | NUR ---
PATIENT NOTED TO DESATURATE TO MID 80'S. PATIENT SUCTIONED, O2 SAT PROBE CHANGED. RT NOTIFIED AND ASSESSED PATIENT. PER RT, PEEP 12 AND FIO2 100% IS AT MAXIMUM. ADVISED TO CONTINUE TO MONITOR WITH NO CHANGES/INTERVENTIONS AT THE TIME. WILL CONTINUE TO MONITOR CLOSELY.
--- NOTE | 2021-02-01 01:26 | NUR ---
RT RE-ASSESSED PATIENT, O2 SAT NOTED TO INCREASE TO 90%. WILL CONTINUE TO MONITOR CLOSELY.
--- NOTE | 2021-02-01 02:34 | NUR ---
PATIENT IN NO APPARENT ACUTE DISTRESS. O2 SAT 91%, VENT SETTINGS CONTINUE AC/PC, PEEP 12, VT 200, FIO2 100%, RATE 20. WILL CONTINUE TO MONITOR CLOSELY. ALL SAFETY MEASURES IN PLACE.
--- NOTE | 2021-02-01 04:00 | NUR ---
MORNING CARE PROVIDED, CENTRAL LINE DRESSING CHANGED. PATIENT NOTED TO DESATURATE TO MID 80'S AND THEN INCREASED TO 9O% AFTER SUCTIONING. RT MADE AWARE OF SATURATION CHANGES, NO FURTHER INTERVENTIONS DONE. CARDOZA CATHETER OUTPUT 400 CC. VAP ORAL CARE RENDERED. WILL CONTINUE TO MONITOR AND FOLLOW POC.
[2021-02-01] MEDS: PIPERACILLIN/TAZOBACTAM 3.375 GM in DEXTROSE 5% 50 ML IV SCH ×3 (04:13→20:37)
[2021-02-01] MEDS: ALBUTEROL SULFATE/IPRATROPIU 3 ML SOL IH SCH ×4 (04:25→15:27)
--- NOTE | 2021-02-01 05:32 | NUR ---
OBSERVED PATIENT, NO ACUTE DISTRESS NOTED, CONTINUES SEDATED, VSS, O2 SAT 91%. WILL CONTINUE TO MONITOR AND FOLLOW POC.
[2021-02-01] MEDS: BLOOD GLUCOSE MONITORING 1 DEV DEV FS SCH ×4 (06:04→18:39)
[2021-02-01 06:06] LABS: BASOPHILS % (AUTO) 0.3 % (0.0-2.0); EOSINOPHILS % (AUTO) 0.3 % (0.0-4.0); HEMATOCRIT 34.3 % (36-48); HEMOGLOBIN 10.7 g/dL (12.0-16.0); LYMPHOCYTES # (AUTO) 1.2 K/uL (2.5-16.5); LYMPHOCYTES % (AUTO) 7.9 % (20.5-51.1); MEAN CORPUSCULAR HEMOGLOBIN 26 pg (27-31); MEAN CORPUSCULAR HGB CONC 31 g/dL (33-37); MEAN CORPUSCULAR VOLUME 82.2 fL (80-94); MONOCYTES # (AUTO) 1.5 K/uL (0.8-1.0); MONOCYTES % (AUTO) 9.8 % (1.7-9.3); NEUTROPHILS # (AUTO) 12.4 K/uL (1.8-7.7); NEUTROPHILS % (AUTO) 81.7 % (42.2-75.2); PLATELET COUNT (AUTO) 632 K/uL (140-450); RED BLOOD CELL COUNT(AUTO) 4.18 MIL/uL (4.20-5.40); WHITE BLOOD COUNT (AUTO) 15.1 K/uL (4.8-10.8)
[2021-02-01 06:30] LABS: ALBUMIN 1.9 g/dL (3.4-5.0); ANION GAP 11.3 (8-16); CARBON DIOXIDE 27.2 mmol/L (21-32); MAGNESIUM 1.9 mg/dL (1.8-2.4); POTASSIUM 4.5 mmol/L (3.5-5.1); TOTAL BILIRUBIN 0.5 mg/dL (0.0-1.0)
--- NOTE | 2021-02-01 07:20 | NUR ---
GAVE REPORT TO DAY SHIFT NURSE, ENDORSED CARE. PATIENT IN NO ACUTE DISTRESS.
--- NOTE | 2021-02-01 07:21 | NUR ---
RECEIVED BEDSIDE REPORT FROM ROBERT ABDULLAHI RN, PT SEDATED RASS -3. IPT ON ETT TO VENT, AC PC FIO2 90%, RATE 20 PEEP 12, NO SOB NOTED. CENTRAL LINE TO R IJ TRIPLE LUMEN CATH, PATENT INTACT, INFUISNG FENTANYL @ 0.5MCG/KG/HR, VERSED @ 1MG/HR, LEVOPHED @ 30MCG/MIN, PROPOFOL @ 25MCG/KG/MIN, NS @ 100ML/HR INFUSING WELL. NGT TO R NARES,IN PLACE WITH FEEDING. CARDOZA CATH IN PLACE DRAINING TO GRAVITY. WOUND TO TO RIGHT INGUINAL, DRESSING CLEAN DRY AND INTACT, INITIAL ASSESSMENT DONE, ALL SAFETY PRECAUTION MET, CALL LIGHT WITHIN REACH, WILL CONTINUE TO MONITOR.
--- NOTE | 2021-02-01 08:29 | NUR ---
BEDSIDE ABG RESULTS GIVEN TO PHYSICIAN. NEW VENT SETTINGS A/C PC Pinsp 30, R 25, PEEP 12 AND FIO2 INCREASED TO 100%. WILL CONTINUE TO MONITOR.
[2021-02-01] MEDS: NOREPINEPHRINE 16 MG in DEXTROSE 5% 250 ML IV PRN ×2 (08:53→19:10)
[2021-02-01] MEDS: VASOPRESSIN 40 UNITS in NACL 0.9% 250 ML IV PRN (08:53)
--- NOTE | 2021-02-01 08:57 | NUR ---
DR BOSWELL AT BEDSIDE, ORDERED THORACENTESIS ON PT, TO REDUCE FLUID TO 75ML/HR WILL CONTINUE WITH ORDERS. Addendum: 02/01/21 at 1658 by Trixie Qureshi RN PER DR BOSWELL TO HOLD ANTICOAGULANT FOR THORACENTHESIS.
[2021-02-01] MEDS: ECOTRIN 81 MG TABEC PO SCH (09:00)
[2021-02-01] MEDS: ENOXAPARIN 40 MG/0.4 ML SYR SUBQ SCH (09:00)
[2021-02-01] MEDS ORDERED: SODIUM BICARBONATE 8.4% PFS 50 MEQ/50 ML SYR IVP SCH (09:00)
[2021-02-01] MEDS: PANTOPRAZOLE 40 MG INJ VIAL IVP SCH (09:37)
[2021-02-01] MEDS: FUROSEMIDE 20 MG/2 ML VIAL IVP SCH ×2 (09:38→20:37)
[2021-02-01] MEDS: AMIODARONE 200 MG TAB PO SCH ×2 (09:39→20:37)
--- NOTE | 2021-02-01 09:39 | NUR ---
DUE MEDICATIONS ADMINISTERED, PT TOLERATED WELL, NO DISTRESS NOTED, CARDOZA CARE DONE, CHG BATH DONE, WILL CONTINUE TO MONITOR.
[2021-02-01 10:07] LABS: PROTHROMBIN TIME 12.5 secs (10.8-13.4)
[2021-02-01] MEDS: PHENYLEPHRINE 40 MG in NACL 0.9% 250 ML IV PRN (10:39)
--- NOTE | 2021-02-01 11:40 | NUR ---
MINI LAB OPERATOR AT BEDSIDE, ECHO DONE. PT TOLERATED WELL, WILL CONTINUE TO MONITOR.
[2021-02-01] MEDS: HYDROCORTISONE NA SUCC 100 MG/2 ML VIAL IV SCH ×2 (12:27→20:37)
--- NOTE | 2021-02-01 12:28 | NUR ---
PAGED REGARDING ABG RESULTS. RESULTS SHOWN TO ICU NURSE.
--- NOTE | 2021-02-01 12:46 | NUR ---
ABG RESULTS GIVEN TO PHYSICIAN STATES PT NEEDS THORACENTESIS AND IF NO IMPROVEMENT PT SHOULD BE PRONED. WILL NOTIFY NURSE.
[2021-02-01] MEDS: NACL 0.9% 1,000 ML IV SCH (13:30)
--- NOTE | 2021-02-01 14:12 | NUR ---
02/01/21 RD INITIAL ASSESSMENT COMPLETED PLEASE REFER TO NUTRITION ASSESSMENT UNDER CARE ACTIVITY FOR ESTIMATED NUTRITIONAL NEEDS. 1. CONTINUE VITAL AF 1.2 WITH A NEW GOAL RATE OF 50 ML/HR -WATER FLUSH 30 ML Q8H -CONTINUE PROPOFOL @ 13 ML/HR, PROVIDING 343 KCAL/DAY -WITH PROPOFOL, PT WILL RECEIVE 1783 KCAL AND 90 GM PROTEIN, MEETING NUTRITIONAL GOALS 2. MONITOR FOR EDEMA 3. MONITOR BLOOD GLUCOSE LEVELS 4. RD TO FOLLOW-UP 2-3 DAYS, HIGH RISK FEROZ VALENTINE RD
--- NOTE | 2021-02-01 14:20 | NUR ---
THORACENTESIS PROCEDURE DONE AT BEDSIDE BY DR GALLEGOS, PT TOLERATED WELL, 1.7L FLUID TAKEN OUT, SENT TO LAB FOR CULTURE PER DR BOURGEOIS'S ORDER. WILL CONTINUE TO MONITOR.
--- NOTE | 2021-02-01 14:46 | NUR ---
DC [age] YRS OLD FEMALE PATIENT WAS ADMITTED FROM HOME WITH A DX OF ACUTE HYPOXEMIC RESPIRATORY FAILURE. PATIENT HAS A HX OF LUNG CA. CXR SHOWED EXTENSIVE BILATERAL PATCHY OPACITIES SUGGESTING MULTIFOCAL PNEUMONIA. RAPID AND PCR COVID TEST NEGATIVE. PATIENT INTUBATED SEDATED SATING 90% . ON ZOSYN AND ZITHROMAX IV ABX. FENTANYL,VERSED AND LEVOPHED DRIP. PULMO, CARDIO, SURGEON ARE FOLLOWING. DC PLAN PER PATIENT RESPOND TO THE TREATMENT.
--- NOTE | 2021-02-01 17:21 | NUR ---
FIO2 TITRATED TO 90%. PT NOT IN ANY DISTRESS AT THIS TIME. VENT ALARMS ON AND FUNCTIONING. ETT SECURE WITH A PATENT AIRWAY.
[2021-02-01] MEDS: AZITHROMYCIN 500 MG in DEXTROSE 5% 250 ML IV SCH (18:42)
--- NOTE | 2021-02-01 19:18 | NUR ---
ENDORSED TO BRAZING MACHINE OPERATOR HELPER NURSE FOR CONTINUOUS OF CARE.
--- NOTE | 2021-02-01 19:20 | NUR ---
RECEIVED REPORT AT BEDSIDE FROM LANETTE RN FOR CONTINUITY OF CARE. PT SEDATED RASS-3. ETT TO VENT AC PC FIO2 @90%, RATE @25, PEEP @12. CENTRAL LINE IN R IJ TRIPLE LUMEN CATH PATENT AND INTACT, INFUSING LEVOPHED @21.99 MCG/MIN, PROPOFOL @10 MCG/KG/MIN, VERSED @1MG/HR, VASOPRESSIN @ 0.04 UNIT/MIN, PATRICIA-SYNOPHRINE @50 MCG/MIN, AND NS @75 ML/HR. NGT TO RIGHT NARE WITH VITAL AF RUNNING @50 ML/HR. F/C IN PLACE DRAINING TO GRAVITY. WOUND TO RIGHT INGUINAL WITH DRESSING, DRY CLEAN AND INTACT. INITIAL ASSESSMENT COMPLETED. SAFETY PRECAUTIONS IN PLACE. BED IN LOWEST POSITION AND CALL LIGHT WITHIN REACH. WILL CONTINUE TO MONITOR.
[2021-02-02] VITALS (28 sets, daily range): BP systolic 97–143; BP diastolic 61–84
[2021-02-02] MEDS: VASOPRESSIN 40 UNITS in NACL 0.9% 250 ML IV PRN ×2 (00:05→19:20)
[2021-02-02] MEDS: INSULIN LISPRO SLIDING SCALE 100 UNITS/ML VIAL SUBQ PRN ×5 (00:29→23:31)
[2021-02-02] MEDS: BLOOD GLUCOSE MONITORING 1 DEV DEV FS SCH ×5 (00:29→23:18)
--- NOTE | 2021-02-02 00:35 | NUR ---
AUDIBLE AIR NOISE PASSING THROUGH PT LIPS. RT BETTY NOTIFIED. RT ASSESSED INTEGRITY OF ETT CUFF AND RE-INFLATED. ETT SECURE AND AUDIBLE AIR NOISE GONE. VSS. O2 SAT @95%. BED IN LOWEST POSITION WITH CALL LIGTH WITHIN REACH. WILL CONTINUE TO MONITOR.
[2021-02-02] MEDS: NACL 0.9% 1,000 ML IV SCH ×2 (01:49→15:26)
[2021-02-02] MEDS: GAUZE TP SCH ×2 (03:30→13:00)
--- NOTE | 2021-02-02 04:30 | NUR ---
AM CARE, [place] CARE, DRESSING CHANGE, AND ORAL CARE VIA VAP KIT PROVIDED. PT TOLERATED WELL. NO SIGNS OF DISTRESS. WILL CONTINUE TO MONITOR.
[2021-02-02] MEDS: HYDROCORTISONE NA SUCC 100 MG/2 ML VIAL IV SCH ×3 (05:14→21:36)
[2021-02-02] MEDS: PIPERACILLIN/TAZOBACTAM 3.375 GM in DEXTROSE 5% 50 ML IV SCH ×3 (05:14→21:33)
[2021-02-02 06:17] LABS: BASOPHILS % (AUTO) 0.3 % (0.0-2.0); HEMATOCRIT 34.3 % (36-48); HEMOGLOBIN 10.8 g/dL (12.0-16.0); LYMPHOCYTES # (AUTO) 0.8 K/uL (2.5-16.5); LYMPHOCYTES % (AUTO) 5.9 % (20.5-51.1); MEAN CORPUSCULAR HEMOGLOBIN 25 pg (27-31); MEAN CORPUSCULAR HGB CONC 31 g/dL (33-37); MEAN CORPUSCULAR VOLUME 81.1 fL (80-94); MONOCYTES # (AUTO) 1.4 K/uL (0.8-1.0); MONOCYTES % (AUTO) 9.6 % (1.7-9.3); NEUTROPHILS # (AUTO) 12.1 K/uL (1.8-7.7); NEUTROPHILS % (AUTO) 84.2 % (42.2-75.2); PLATELET COUNT (AUTO) 541 K/uL (140-450); RED BLOOD CELL COUNT(AUTO) 4.23 MIL/uL (4.20-5.40); RED CELL DISTRIBUTION WIDTH 15.6 % (11.6-13.7); WHITE BLOOD COUNT (AUTO) 14.4 K/uL (4.8-10.8)
[2021-02-02 06:41] LABS: ALBUMIN 1.9 g/dL (3.4-5.0); ANION GAP 12.7 (8-16); CARBON DIOXIDE 25.2 mmol/L (21-32); CREATININE 0.9 mg/dL (0.6-1.3); MAGNESIUM 1.9 mg/dL (1.8-2.4); POTASSIUM 3.9 mmol/L (3.5-5.1); TOTAL BILIRUBIN 0.4 mg/dL (0.0-1.0)
[2021-02-02] MEDS: ALBUTEROL SULFATE/IPRATROPIU 3 ML SOL IH SCH ×5 (06:50→23:12)
[2021-02-02] MEDS: BUDESONIDE 0.5 MG/2 ML NEBU INH SCH ×2 (06:50→19:25)
--- NOTE | 2021-02-02 07:15 | NUR ---
RECEIVED REPORT FROM CRIMINALIST NURSE. PT IS IN BED REST AND IN NO SIGN OF DISTRESS OR DISCOMFORT. PT IS SEDATED AND IN MECHANICAL VENTILATION. ETT SETTINGS ARE AC/PC FIO2 90%, RATE 25 AND PEEP 12. MONITOR SHOWS PT IS SINUS TACHYCARDIA. RIGHT IJ 3 LUMEN RUNNING NS AT 75 ML/HR, PROPOFOL 10 MCG/KG/MIN, VERSED 1MG/H, LEVOPHED AT 22 MCG/ MIN, VASOPRESSIN AT 0.04 UNITS/MIN, AND PATRICIA-SYNOPHRINE AT 50 MCG/MIN. PT HAS NG TUBE FEEDINGS OF VITAL AF 1.2 AT 50 ML/H W/ 30 ML/ Q 8 H OF H20. PT HAS TWO WOUNDS ON THE RIGHT INGUINAL AREA. CARDOZA IS IN PLACE. ALL SAFETY MEASURES HAVE BEEN IMPLEMENTED. WILL CONTINUE TO MONITOR.
--- NOTE | 2021-02-02 07:27 | NUR ---
GAVE REPORT AT BEDSIDE TO DAYSHIFT RN FOR CONTINUITY OF CARE.
[2021-02-02] MEDS: NOREPINEPHRINE 16 MG in DEXTROSE 5% 250 ML IV PRN ×2 (09:34→21:06)
[2021-02-02] MEDS: ECOTRIN 81 MG TABEC PO SCH (09:36)
[2021-02-02] MEDS: AMIODARONE 200 MG TAB PO SCH ×2 (09:36→21:37)
[2021-02-02] MEDS: ENOXAPARIN 40 MG/0.4 ML SYR SUBQ SCH (09:36)
[2021-02-02] MEDS: PANTOPRAZOLE 40 MG INJ VIAL IVP SCH (09:36)
[2021-02-02] MEDS: FUROSEMIDE 20 MG/2 ML VIAL IVP SCH ×2 (09:36→21:36)
--- NOTE | 2021-02-02 12:00 | NUR ---
PER DR. BOSWELL ORDERS, PROPOFOL WAS STOPPED, VERSED WAS INCREASED TO 2 MG/H AND NS AT 30 ML/HR. WILL CONTINUE TO MONITOR.
--- NOTE | 2021-02-02 12:05 | NUR ---
DR. BOSWELL AT BEDSIDE.
--- NOTE | 2021-02-02 12:20 | NUR ---
ABG RESULTS GIVEN TO . NEW VENT SETTINGS: A/C PC Pinsp30, R25, PEEP 12 AND FIO2 90%. UPDATED PHYSICIAN ON PT STATUS AND Vt. WILL CONTINUE TO MONITOR.
--- NOTE | 2021-02-02 13:11 | NUR ---
RADIOLOGY CALLED VIA PHONE TO REPORT PT HAS A SMALL RIGHT APICAL PNEUMOTHORAX. WILL CONTACT DR. BOURGEOIS AND RT.
--- NOTE | 2021-02-02 13:14 | NUR ---
DR. BOURGEOIS CALLED WAS INFORMED OF SMALL RIGHT APICAL PNEUMOTHORAX. PER DR. BOURGEOIS ORDERS CARE WILL REMAIN THE SAME AND RT WILL BE NOTIFY.
--- NOTE | 2021-02-02 13:16 | NUR ---
RT AT BEDSIDE AND WAS INFORMED OF PATIENTS RADIOLOGY REPORT.
--- NOTE | 2021-02-02 13:28 | NUR ---
SPOKE TO REGARDING 5% PNEUMOTHORAX, PHYSICIAN STATES TO REPEAT CXR @1900 AND 0700 ON 02/03. PHYSICIAN STATES NO CHANGES REGARDING VENT SETTINGS. WILL CONTINUE TO MONITOR.
--- NOTE | 2021-02-02 13:32 | NUR ---
HUMAN RESOURCES BENEFITS ASSISTANT ORDERED RT TO SCHEDULE A CHEST X RAY AT 1900 02/02/21 AND ANOTHER CHEST X RAY AT 0800 ON 02/03/21.
--- NOTE | 2021-02-02 13:50 | NUR ---
TOBI ALEJANDRO CALLED VIA PHONE FOR AN UPDATE ON PT.
--- NOTE | 2021-02-02 14:15 | NUR ---
DR. LEROY AT BEDSIDE.
[2021-02-02] MEDS: PHENYLEPHRINE 40 MG in NACL 0.9% 250 ML IV PRN ×3 (14:20)
[2021-02-02] MEDS: AZITHROMYCIN 500 MG in DEXTROSE 5% 250 ML IV SCH (18:14)
--- NOTE | 2021-02-02 19:20 | NUR ---
ENDORSED CARE TO TOP INSTALLER NURSE FOR CONTINUITY OF CARE.
--- NOTE | 2021-02-02 20:24 | NUR ---
CRX REVEALED ETT AT THE PARVEEN AND IT SHOULD BE WITHDRAWN ROUGHLY 2. ETT NOW AT 21cm @ TEETH.
--- NOTE | 2021-02-02 22:41 | NUR ---
patient sedated i talked to her son Fransisco ,Vitals signs in normal limits ST on the monitor
[2021-02-03] VITALS (29 sets, daily range): BP systolic 89–116; BP diastolic 55–72
--- NOTE | 2021-02-03 00:26 | NUR ---
PATIENT SEDATED HEMODINAMICLY STABLE AC/PC MODE ON VENTILATOR R 30 PEEP 12 FIO2 90% VITALS SIGNS IN NORMAL LIMITS ST 120 ON MONITOR //DiCaprio RN
[2021-02-03] MEDS: GAUZE TP SCH ×2 (01:08→13:50)
[2021-02-03] MEDS: PHENYLEPHRINE 40 MG in NACL 0.9% 250 ML IV PRN (01:12)
[2021-02-03] MEDS: ALBUTEROL SULFATE/IPRATROPIU 3 ML SOL IH SCH ×5 (02:43→23:27)
--- NOTE | 2021-02-03 02:45 | NUR ---
PATIENT STABLE VITALS SIGNS IN NORMAL LIMITS ST 120 ON MONITOR //DiCaprio RN
--- NOTE | 2021-02-03 05:08 | NUR ---
PATIENT STABLE AT PRESURE CONTROL PC AT 30 FI02 90 % PEEP 12 VITALS SIGNS IN NORMAL LIMITS ST 120 ON MONITOR //DiCaprio RN
[2021-02-03] MEDS: PIPERACILLIN/TAZOBACTAM 3.375 GM in DEXTROSE 5% 50 ML IV SCH ×3 (05:13→20:11)
[2021-02-03] MEDS: HYDROCORTISONE NA SUCC 100 MG/2 ML VIAL IV SCH ×3 (05:14→20:11)
[2021-02-03] MEDS: BLOOD GLUCOSE MONITORING 1 DEV DEV FS SCH ×4 (05:18→23:48)
[2021-02-03] MEDS: INSULIN LISPRO SLIDING SCALE 100 UNITS/ML VIAL SUBQ PRN ×4 (05:19→23:49)
[2021-02-03] MEDS: NACL 0.9% 1,000 ML IV SCH ×2 (05:21→17:18)
[2021-02-03] MEDS: MIDAZOLAM MDV 100 MG in NACL 0.9% 80 ML IV PRN (06:44)
[2021-02-03] MEDS: BUDESONIDE 0.5 MG/2 ML NEBU INH SCH ×2 (07:13→19:39)
--- NOTE | 2021-02-03 07:20 | NUR ---
RECEIVED BEDSIDE REPORT FROM ANGEL RN FOR CONTINUITY OF CARE. PT SEDATED, RASS -3. ETT TO VENT, ACPC, FIO2 90, R 30, PEEP 12. RIJ CENTRAL LINE IN PLACE, PATENT, INTACT, NO S/S OF INFECTION, RUNNING LEVOPHED AT 22 MCG/MIN. NEOSYNEPHRINE AT 50 MCG/MIN, VASOPRESSIN AT 0.04 UNITS/MIN, PROPOFOL AT 10 MCG/MIN, VERSED AT 1MG/HR, AND FENTANYL ON HOLD. NGT TO R NARE, FEEDING HELD FOR HIGH RESIDUALS PER NIGHT NURSE. F/C IN PLACE, DRAINING TO GRAVITY. R INGUINAL WOUND, DRESSING CLEAN, DRY, INTACT. INITIAL ASSESSMENT COMPLETED. ALL SAFETY PRECAUTIONS MET. STANDARD PRECAUTIONS IN PLACE, CALL LIGHT WITHIN REACH. ALL NEEDS ARE MET AT THIS TIME. WILL CONTINUE TO MONITOR.
[2021-02-03] MEDS: FUROSEMIDE 20 MG/2 ML VIAL IVP SCH ×2 (09:00→20:11)
[2021-02-03] MEDS: ASPIRIN 81 MG TAB.CHEW GT SCH (09:00)
[2021-02-03] MEDS: AMIODARONE 200 MG TAB PO SCH ×2 (09:01→20:11)
[2021-02-03] MEDS: PANTOPRAZOLE 40 MG INJ VIAL IVP SCH (09:01)
[2021-02-03] MEDS: ENOXAPARIN 40 MG/0.4 ML SYR SUBQ SCH (09:11)
[2021-02-03] MEDS: NOREPINEPHRINE 16 MG in DEXTROSE 5% 250 ML IV PRN ×2 (09:30→22:06)
--- NOTE | 2021-02-03 10:15 | NUR ---
SEEN AND EXAMINED BY DR BOSWELL.
[2021-02-03] MEDS ORDERED: ENOXAPARIN 60 MG/0.6 ML SYR SUBQ SCH (11:00)
[2021-02-03] MEDS: ACETAMINOPHEN 325 MG TAB PO PRN ×2 (11:10→23:49)
--- NOTE | 2021-02-03 11:25 | NUR ---
PT UNSTABLE FOR CT. SPO2 DECREASING INTO 70'S WHEN MANUALLY VENTILATED WITH PEEP VALVE. NURSE BEDSIDE AWARE OF PT STATUS.
--- NOTE | 2021-02-03 11:45 | NUR ---
XRAY AT BEDSIDE.
[2021-02-03] MEDS: VASOPRESSIN 40 UNITS in NACL 0.9% 250 ML IV PRN (13:50)
--- NOTE | 2021-02-03 13:58 | NUR ---
02/03/21 RD FOLLOW UP COMPLETED PLEASE REFER TO NUTRITION ASSESSMENT UNDER CARE ACTIVITY FOR ESTIMATED NUTRITIONAL NEEDS. 1. CONTINUE VITAL AF 1.2 @ 50 ML/HR -WATER FLUSH 30 ML Q8H -CONTINUE PROPOFOL @ 10 ML/HR, PROVIDING 264 KCAL/DAY -WITH PROPOFOL, PT WILL RECEIVE 1704 KCAL AND 90 GM PROTEIN, MEETING NUTRITIONAL GOALS 2. MONITOR FOR EDEMA 3. MONITOR BLOOD GLUCOSE LEVELS 4. RD TO FOLLOW-UP 2-3 DAYS, HIGH RISK FEROZ VALENTINE RD
--- NOTE | 2021-02-03 14:00 | NUR ---
PT SEDATED, RASS -3. WILL CONTINUE TO MONITOR.
[2021-02-03] MEDS: PROPOFOL 1000 MG/100 ML PREMIX 100 ML IV PRN (14:53)
--- NOTE | 2021-02-03 16:00 | NUR ---
PT SEDATED. EYES CLOSED. NO SIGNS OF ACUTE DISTRESS. WILL CONTINUE TO MONITOR.
--- NOTE | 2021-02-03 17:59 | NUR ---
PT REMAINS ON DOCUMENTED VENT SETTINGS. PT NOT IN ANY DISTRESS. VENT ALARMS ON AND FUNCTIONING.
--- NOTE | 2021-02-03 18:00 | NUR ---
NO ACUTE DISTRESS NOTED. ALL NEEDS ARE MET AT THIS TIME. WILL CONTINUE TO MONITOR.
--- NOTE | 2021-02-03 19:15 | NUR ---
GAVE BEDSIDE REPORT TO KAR BORJA FOR CONTINUITY OF CARE.
--- NOTE | 2021-02-03 19:30 | NUR ---
ASSUMED CARE OF PT.INITIAL ASSESSMENT COMPLETED.ST NOTED ON MONITOR.PT SEDATED.W/TLC TO RT IJ INTACT.GOOD BLOOD RETURN TO ALL 3 PORTS INFUSING NS AT 75ML/HR ,LEVOPHED 16 MG IN 250ML D5W AT 22 MCG/MIN,VASOPRESSIN 40UNITS IN 250ML NS AT 0.04 UNITS/MIN,PATRICIA SYNEPHRINE 40MG IN 250ML NS AT 50 MCG/MIN, PROPOFOL AT 5 MCG/KG/MIN.DRY WT 89 KG AND VERSED AT 1MG/HR.W/NGT TO RT NARES INTACT.200ML RESIDUALS NOTED.ON NGT FEEDING VITAL AF 1.2 AT 10ML/HR WITH WATER FLUSH ORDERED ON HOLD FOR NOW DUE TO HIGH RESIDUALS.W/CARDOZA CATHETER TO BSD DRAINING SMALL AMT OF YELLOW URINE W/SEDIMENTS.W/DRY AND INTACT DRESSING TO RT GROIN,2 OPEN WOUNDS NOTED.W/PITTING EDEMA TO BLE +4 ALSO NOTED,INNER THIGHS REDDENED AND WARM TO TOUCH.FLACC 0.SAFETY PRECAUTION IN PLACE.BED IN LOW POSITION.CALL LIGHT WITHIN REACH.WILL CONTINUE TO CLOSELY MONITOR PT
[2021-02-03] MEDS: ENOXAPARIN 100 MG/ML SYR SUBQ SCH (20:12)
[2021-02-03] MEDS ORDERED: NOREPINEPHRINE 4 MG/4 ML VIAL IV ONE (22:04)
[2021-02-03] MEDS ORDERED: PHENYLEPHRINE 10 MG/ML VIAL ONE (23:39)
--- NOTE | 2021-02-03 23:49 | NUR ---
TEMP 100.7; TYLENOL ADMIN ORDERED
[2021-02-04] VITALS (27 sets, daily range): BP systolic 85–103; BP diastolic 51–68
[2021-02-04] MEDS: GAUZE TP SCH ×2 (00:13→12:51)
--- NOTE | 2021-02-04 00:23 | NUR ---
ORAL CARE USING VAP KIT RENDERED.COOLING MEASURES ALSO RENDERED FOR FEVER.WILL CONTINUE TO CLOSELY MONITOR PT
--- NOTE | 2021-02-04 01:30 | NUR ---
TEMP STILL 100.6; CONTINUOUS COOL MEASURES RENDERED.REPOSITIONED.
[2021-02-04] MEDS: ALBUTEROL SULFATE/IPRATROPIU 3 ML SOL IH SCH ×6 (02:46→23:30)
--- NOTE | 2021-02-04 04:00 | NUR ---
TEMP STILL 100.2; COOLING MEASURES DONE.REPOSITIONED.FLACC 0
--- NOTE | 2021-02-04 04:33 | NUR ---
MORNING CARE DONE.ORAL CARE RENDERED.PT REPOSITIONED.FLACC 0
[2021-02-04] MEDS: PIPERACILLIN/TAZOBACTAM 3.375 GM in DEXTROSE 5% 50 ML IV SCH (05:16)
[2021-02-04] MEDS: HYDROCORTISONE NA SUCC 100 MG/2 ML VIAL IV SCH ×3 (05:16→20:07)
[2021-02-04] MEDS: BLOOD GLUCOSE MONITORING 1 DEV DEV FS SCH ×3 (05:21→18:37)
[2021-02-04] MEDS: INSULIN LISPRO SLIDING SCALE 100 UNITS/ML VIAL SUBQ PRN ×3 (05:21→18:39)
[2021-02-04] MEDS ORDERED: VASOPRESSIN 20 UNITS/ML VIAL ONE (05:50)
[2021-02-04] MEDS: VASOPRESSIN 40 UNITS in NACL 0.9% 250 ML IV PRN (05:51)
--- NOTE | 2021-02-04 06:20 | NUR ---
PTS CONDITION REMAINS UNCHANGED.STILL ON VASOPRESSORS.ETT TO VENT FIO2 90%.FLACC 0
[2021-02-04] MEDS: NACL 0.9% 1,000 ML IV SCH ×2 (06:35→20:12)
--- NOTE | 2021-02-04 06:35 | NUR ---
TEMP RECHECKED 99.4
--- NOTE | 2021-02-04 07:10 | NUR ---
RECEIVED BEDSIDE REPORT FROM KAR BORJA FOR CONTINUITY OF CARE. PT SEDATED, RASS -3. ETT TO VENT, ACPC, FIO2 90, R 30, PEEP 12. RIJ CENTRAL LINE IN PLACE, PATENT, INTACT, NO S/S OF INFECTION, RUNNING NS AT 75 ML/HR, LEVOPHED AT 25 MCG/MIN. PATRICIA-SYNEPHRINE AT 100 MCG/MIN, VASOPRESSIN AT 0.04 UNITS/MIN, PROPOFOL AT 5 MCG/MIN, VERSED AT 1MG/HR, AND FENTANYL ON HOLD. NGT TO R NARE, RUNNING VITAL 1.2 AT 50 ML/H, H2O FLUSH 30 ML Q8H. F/C IN PLACE, DRAINING TO GRAVITY. R INGUINAL WOUND, DRESSING CLEAN, DRY, INTACT. INITIAL ASSESSMENT COMPLETED. ALL SAFETY PRECAUTIONS MET. STANDARD PRECAUTIONS IN PLACE, CALL LIGHT WITHIN REACH. ALL NEEDS ARE MET AT THIS TIME. WILL CONTINUE TO MONITOR.
[2021-02-04] MEDS: BUDESONIDE 0.5 MG/2 ML NEBU INH SCH ×2 (07:34→19:49)
[2021-02-04] MEDS: PHENYLEPHRINE 40 MG in NACL 0.9% 250 ML IV PRN ×3 (08:07→21:06)
[2021-02-04] MEDS: ASPIRIN 81 MG TAB.CHEW GT SCH (08:18)
[2021-02-04] MEDS: AMIODARONE 200 MG TAB PO SCH ×2 (08:19→20:08)
[2021-02-04] MEDS: PANTOPRAZOLE 40 MG INJ VIAL IVP SCH (08:19)
[2021-02-04] MEDS: FUROSEMIDE 20 MG/2 ML VIAL IVP SCH ×2 (08:19→20:07)
--- NOTE | 2021-02-04 08:20 | NUR ---
RESIDUAL 240 CC. FEEDING HELD. MORNING MEDS GIVEN PER MD ORDER. WILL CONTINUE TO MONITOR.
[2021-02-04] MEDS: ENOXAPARIN 100 MG/ML SYR SUBQ SCH (09:09)
[2021-02-04 10:21] LABS: ALBUMIN 1.9 g/dL (3.4-5.0); ANION GAP 14.7 (8-16); CARBON DIOXIDE 23.6 mmol/L (21-32); CREATININE 1.6 mg/dL (0.6-1.3); POTASSIUM 5.3 mmol/L (3.5-5.1); TOTAL BILIRUBIN 1.4 mg/dL (0.0-1.0)
--- NOTE | 2021-02-04 10:42 | NUR ---
LAB CALLED WITH CRITICAL LAB VALUES BUN 73, CREATININE 1.6. SAID THEY NEED TO VERIFY, NOT TO REPORT TO MD YET.
[2021-02-04] MEDS: NOREPINEPHRINE 16 MG in DEXTROSE 5% 250 ML IV PRN ×2 (10:45→20:13)
--- NOTE | 2021-02-04 10:57 | NUR ---
LAB CALLED TO CONFIRM CRITICAL LAB VALUES. BUN 73, CREATININE 1.6, AST 2839, ALT 5096. CALLED DR GONGORA, COMMUNICATED LAB VALUES. SHE SAID SHE WOULD COME TO ICU. WAITING FOR DR RAGSDALE.
[2021-02-04 11:06] LABS: BASOPHILS # (AUTO) 0.2 K/uL (0.00-0.22); EOSINOPHILS # (AUTO) 0.2 K/uL (0-0.4); EOSINOPHILS % (AUTO) 1.2 % (0.0-4.0); HEMATOCRIT 33.7 % (36-48); HEMOGLOBIN 10.6 g/dL (12.0-16.0); LYMPHOCYTES # (AUTO) 1.2 K/uL (2.5-16.5); LYMPHOCYTES % (AUTO) 6.7 % (20.5-51.1); MEAN CORPUSCULAR HEMOGLOBIN 26 pg (27-31); MEAN CORPUSCULAR HGB CONC 32 g/dL (33-37); MEAN CORPUSCULAR VOLUME 82.1 fL (80-94); MONOCYTES # (AUTO) 1.2 K/uL (0.8-1.0); MONOCYTES % (AUTO) 6.6 % (1.7-9.3); NEUTROPHILS # (AUTO) 15.2 K/uL (1.8-7.7); NEUTROPHILS % (AUTO) 84.5 % (42.2-75.2); PLATELET COUNT (AUTO) 348 K/uL (140-450); RED BLOOD CELL COUNT(AUTO) 4.11 MIL/uL (4.20-5.40); RED CELL DISTRIBUTION WIDTH 15.7 % (11.6-13.7)
[2021-02-04] MEDS ORDERED: DOBUTamine 500 MG/D5W PREMIX 250 ML IV SCH (11:35)
--- NOTE | 2021-02-04 11:40 | NUR ---
SEEN AND EXAMINED BY DR BOSWELL. DR ORDERED STAT CXR TO VERIFY ETT PLACEMENT. KAYEXALATE, DOBUTAMINE DRIP, CHANGED LOVENOX FROM BID TO ONCE DAILY. D/C TANNA, ORDERED MERREM PER PHARMACY AND MICROFUNGEN PER PHARMACY. DR BOSWELL ORDERED CONSULTATION WITH DR PICKETT. DR BOSWELL SPOKE WITH SON, ALEJANDRO, ON THE PHONE TO UPDATE ON PATIENT STATUS. ALEJANDRO, SON, DECIDED TO CHANGE CODE STATUS TO DNR. I ALSO SPOKE WITH SON ON TELEPHONE TO WITNESS DNR CODE STATUS. WILL CONTINUE TO MONITOR.
[2021-02-04] MEDS ORDERED: MEROPENEM 1,000 MG in NACL 0.9% 100 ML IV SCH (12:00)
[2021-02-04] MEDS ORDERED: FUROSEMIDE 40 MG/4 ML VIAL IVP SCH (12:00)
[2021-02-04] MEDS ORDERED: SODIUM POLYSTYRENE 15 GM/60 ML UDBTL PO SCH (12:00)
[2021-02-04] MEDS ORDERED: MICAFUNGIN SODIUM 100 MG in NACL 0.9% 100 ML IV SCH (13:00)
--- NOTE | 2021-02-04 13:37 | NUR ---
SPOKE TO DR LEROY REGARDING PT HR WENT UP TO 170S FOR A FEW MINUTES, PER DR LEROY JUST MONITOR FOR NOW. NO NEW ORDERS.
--- NOTE | 2021-02-04 18:00 | NUR ---
CLEANED AND REPOSITIONED PATIENT. TOLERATED WELL. WILL CONTINUE TO MONITOR.
--- NOTE | 2021-02-04 19:10 | NUR ---
ASSUMED CARE OF PT.INITIAL ASSESSMENT COMPLETED.ST NOTED ON MONITOR.PT LETHARGIC.W/TLC TO RT IJ INTACT.GOOD BLOOD RETURN TO ALL 3 PORTS INFUSING NS AT 75ML/HR ,LEVOPHED 16 MG IN 250ML D5W AT 30 MCG/MIN,VASOPRESSIN 40UNITS IN 250ML NS AT 0.04 UNITS/MIN,PATRICIA SYNEPHRINE 40MG IN 250ML NS AT 150 MCG/MIN, OFF SEDATION,WITHDRAWS TO DEEP PAIN.W/NGT TO RT NARES INTACT.NO RESIDUALS NOTED.ON NGT FEEDING VITAL AF 1.2 AT 50ML/HR WITH WATER FLUSH ORDERED .W/CARDOZA CATHETER TO BSD SCANTY AMT OF YELLOW URINE W/SEDIMENTS.W/DRY AND INTACT DRESSING TO RT GROIN,2 OPEN WOUNDS NOTED.W/PITTING EDEMA TO BLE +4 ALSO NOTED,INNER THIGHS REDDENED AND WARM TO TOUCH.FLACC 0.SAFETY PRECAUTION IN PLACE.BED IN LOW POSITION.CALL LIGHT WITHIN REACH.WILL CONTINUE TO CLOSELY MONITOR PT
--- NOTE | 2021-02-04 19:20 | NUR ---
ENDORSED BEDSIDE REPORT TO KAR BORJA FOR CONTINUITY OF CARE.
--- NOTE | 2021-02-04 19:20 | NUR ---
VISITED BY SON ALEJANDRO, UPDATED ON PTS PRESENT CONDITION.QUESTIONS ANSWERED.TO CALL HIM IF ANYTHING HAPPENS.ASSURED CRIMINALIST TECHNICIAN WILL CALL HIM
--- NOTE | 2021-02-04 19:36 | NUR ---
SEEN AND EXAMINED BY DR PICKETT, WOUND ALSO SEEN BY , NEW ORDERS RECEIVED.CARRIED OUT Addendum: 02/04/21 at 2040 by Taylor Gutierrez RN PER DR PICKETT,INFECTIOUS DS ;CHANGE MERREM DOSE TO 500MG Q 8HRS
[2021-02-04] MEDS ORDERED: MEROPENEM 500 MG VIAL IV ONE (20:46)
[2021-02-04] MEDS: MEROPENEM 500 MG in NACL 0.9% 100 ML IV SCH (21:05)
--- NOTE | 2021-02-04 21:20 | NUR ---
svt noted on monitor.hr 170's 180's; phone call to dr hodges, final dressing cutter.notified of the svt; also updated dr hodges re: pt on 3 vasopressors 9levophed,kane synephrine and vasopressin) all 3 drips max dose; per dr hodges no new order for vasopressor; ordered amiodarone drip,no bolus start 1mg/min and dc amiodarone p.o; carried out
[2021-02-04] MEDS ORDERED: AMIODARONE 450 MG in DEXTROSE 5% 250 ML IV SCH (21:25)
--- NOTE | 2021-02-04 22:18 | NUR ---
PHONE CALL TO DR LEROY,OCULARIST, INFORM MD THAT PTS HR ST 113 AT THIS TIME, NO SVT NOTED SINCE THE LAST PHONE CALL WITH HIM(DR LEROY); NOT TO START AMIODARONE DRIP YET ONLY WHEN SVT HAPPENS AGAIN.
[2021-02-05] VITALS (19 sets, daily range): BP systolic 81–164; BP diastolic 51–86
--- NOTE | 2021-02-05 | NUR ---
RESIDUALS CHECKED 350ML, NGT FEEDING ON HOLD FOR NOW.WILL CHECK LATER ORAL CARE USING VAP KIT RENDERED.PT REPOSITIONED.AFEBRILE
[2021-02-05] MEDS: BLOOD GLUCOSE MONITORING 1 DEV DEV FS SCH ×4 (00:26→17:32)
[2021-02-05] MEDS: INSULIN LISPRO SLIDING SCALE 100 UNITS/ML VIAL SUBQ PRN ×4 (00:27→17:34)
[2021-02-05] MEDS: VASOPRESSIN 40 UNITS in NACL 0.9% 250 ML IV PRN ×2 (00:28→18:37)
[2021-02-05] MEDS: GAUZE TP SCH ×2 (00:55→12:10)
--- NOTE | 2021-02-05 02:00 | NUR ---
ST STILL NOTED; ETT TO VENT FIO2 90%.LEVOPHED,VASOPRESSIN AND PATRICIA SYNEPHRINE STILL INFUSING MAX DOSE.FLACC 0.REPOSITIONED
[2021-02-05] MEDS ORDERED: PHENYLEPHRINE 10 MG/ML VIAL ONE ×3 (02:13→17:13)
[2021-02-05] MEDS: PHENYLEPHRINE 40 MG in NACL 0.9% 250 ML IV PRN ×3 (02:20→17:28)
[2021-02-05] MEDS: ALBUTEROL SULFATE/IPRATROPIU 3 ML SOL IH SCH ×4 (03:24→19:41)
--- NOTE | 2021-02-05 04:00 | NUR ---
RESIDUALS CHECKED STILL 300ML.NGT FEEDING STILL ON HOLD FOR NOW.ORAL CARE DONE.REPOSITIONED
[2021-02-05] MEDS ORDERED: MEROPENEM 500 MG VIAL IV ONE (05:11)
--- NOTE | 2021-02-05 05:22 | NUR ---
MORNING CARE DONE.NO BM NOTED.FLACC 0
[2021-02-05] MEDS: MEROPENEM 500 MG in NACL 0.9% 100 ML IV SCH (05:34)
[2021-02-05] MEDS: HYDROCORTISONE NA SUCC 100 MG/2 ML VIAL IV SCH ×2 (05:34→12:17)
[2021-02-05] MEDS ORDERED: NOREPINEPHRINE 4 MG/4 ML VIAL IV ONE (05:41)
[2021-02-05] MEDS: NOREPINEPHRINE 16 MG in DEXTROSE 5% 250 ML IV PRN ×2 (05:50→16:30)
--- NOTE | 2021-02-05 07:10 | NUR ---
RECEIVED BEDSIDE REPORT FROM KAR BORJA FOR CONTINUITY OF CARE. PT SEDATED, RASS -3. ETT TO VENT, ACPC, FIO2 80, R 30, PEEP 8. RIJ CENTRAL LINE IN PLACE, PATENT, INTACT, NO S/S OF INFECTION, RUNNING NS AT 75 ML/HR, LEVOPHED AT 30 MCG/MIN. PATRICIA-SYNEPHRINE AT 150 MCG/MIN, VASOPRESSIN AT 0.04 UNITS/MIN. NGT TO R NARE, VITAL 1.2 ON HOLD. F/C IN PLACE, DRAINING TO GRAVITY. R INGUINAL WOUND, DRESSING CLEAN, DRY, INTACT. INITIAL ASSESSMENT COMPLETED. ALL SAFETY PRECAUTIONS MET. STANDARD PRECAUTIONS IN PLACE, CALL LIGHT WITHIN REACH. ALL NEEDS ARE MET AT THIS TIME. WILL CONTINUE TO MONITOR.
[2021-02-05] MEDS: BUDESONIDE 0.5 MG/2 ML NEBU INH SCH ×2 (07:11→19:41)
[2021-02-05] MEDS: FUROSEMIDE 20 MG/2 ML VIAL IVP SCH (08:18)
[2021-02-05] MEDS: ASPIRIN 81 MG TAB.CHEW GT SCH (08:18)
[2021-02-05] MEDS: PANTOPRAZOLE 40 MG INJ VIAL IVP SCH (08:18)
[2021-02-05] MEDS ORDERED: ENOXAPARIN 100 MG/ML SYR SUBQ SCH (09:00)
[2021-02-05] MEDS ORDERED: AMIODARONE 200 MG TAB PO SCH (09:00)
--- NOTE | 2021-02-05 09:45 | NUR ---
DR GONGORA REPORTED SPEAKING WITH PT'S SON, ALEJANDRO, REGARDING END OF LIFE CARE. ALEJANDRO WISHES TO CONTINUE WITH PT'S MEDICATIONS AND REMAIN PT INTUBATED.
--- NOTE | 2021-02-05 09:55 | NUR ---
SEEN AND EXAMINED BY DR BOSWELL.
[2021-02-05] MEDS ORDERED: INTUBATION KIT MC ONE (10:08)
--- NOTE | 2021-02-05 10:40 | NUR ---
SEEN AND EXAMINED BY DR GONGORA.
[2021-02-05] MEDS: NACL 0.9% 1,000 ML IV SCH (10:45)
--- NOTE | 2021-02-05 12:00 | NUR ---
TUBE FEEDING RESTARTED, RESIDUAL 120. WILL CONTINUE TO MONITOR.
--- NOTE | 2021-02-05 12:40 | NUR ---
02/05/21 RD FOLLOW UP COMPLETED PLEASE REFER TO NUTRITION ASSESSMENT UNDER CARE ACTIVITY FOR ESTIMATED NUTRITIONAL NEEDS. 1. CONTINUE VITAL AF 1.2 @ 50 ML/HR, FWF 30 ML Q8H TOLERATED - PROVIDES 1440 KCAL AND 90 GM PROTEIN, MEETING 87% KCALS AND 100% EST. PRO NEEDS 2. PROVIDE BECKY 1X DAY PER RD PROTOCOL 3. RD TO FOLLOW-UP 2-3 DAYS, HIGH RISK REVIEWED BY ANYA CHRISTY RD
[2021-02-05] MEDS ORDERED: MEROPENEM 500 MG in NACL 0.9% 50 ML IV SCH (13:00)
[2021-02-05 13:07] LABS: BASOPHILS # (AUTO) 0.3 K/uL (0.00-0.22); BASOPHILS % (AUTO) 1.5 % (0.0-2.0); HEMOGLOBIN 11.2 g/dL (12.0-16.0); LYMPHOCYTES % (AUTO) 4.6 % (20.5-51.1); MEAN CORPUSCULAR HEMOGLOBIN 25 pg (27-31); MEAN CORPUSCULAR HGB CONC 31 g/dL (33-37); MEAN CORPUSCULAR VOLUME 80.8 fL (80-94); MONOCYTES # (AUTO) 1.4 K/uL (0.8-1.0); MONOCYTES % (AUTO) 6.5 % (1.7-9.3); NEUTROPHILS # (AUTO) 18.6 K/uL (1.8-7.7); NEUTROPHILS % (AUTO) 87.4 % (42.2-75.2); PLATELET COUNT (AUTO) 306 K/uL (140-450); RED BLOOD CELL COUNT(AUTO) 4.46 MIL/uL (4.20-5.40); RED CELL DISTRIBUTION WIDTH 16.1 % (11.6-13.7); WHITE BLOOD COUNT (AUTO) 21.3 K/uL (4.8-10.8)
[2021-02-05 13:31] LABS: ALBUMIN 1.9 g/dL (3.4-5.0); CREATININE 2.1 mg/dL (0.6-1.3); TOTAL BILIRUBIN 1.7 mg/dL (0.0-1.0)
--- NOTE | 2021-02-05 13:50 | NUR ---
PT CLEANED AND REPOSITIONED. DESATURATED TO SPO2 80%, PAGED RT.
[2021-02-05] MEDS ORDERED: SODIUM ZIRCONIUM CYCLOSILICATE 10 GM POWD.PACK PO SCH (14:05)
[2021-02-05] MEDS ORDERED: INSULIN REGULAR, HUMAN 100 UNIT/ML VIAL SUBQ SCH (14:05)
[2021-02-05] MEDS ORDERED: DEXTROSE 50% 50 ML SYR IVP SCH (14:05)
--- NOTE | 2021-02-05 14:38 | NUR ---
XRAY AT BEDSIDE.
--- NOTE | 2021-02-05 14:55 | NUR ---
SEEN AND EXAMINED BY DR LEROY.
--- NOTE | 2021-02-05 16:00 | NUR ---
CLEANED AND REPOSITIONED PT. TOLERATED POORLY, DESATURATED TO 80. CALLED RT. TUBE FEEDING HELD FOR HIGH RESIDUAL 600 CC.
--- NOTE | 2021-02-05 18:00 | NUR ---
SEEN AND EXAMINED BY DR PICKETT.
--- NOTE | 2021-02-05 19:15 | NUR ---
RECEIVED PATIENTON BED WITH HOB ELEVATED TO 30 DEGREE, ORALLY INTUBATED AND VENTILATED AT 90% FIO2. ON MAXIMUM DOSE OF LEVOPHED, VASOPRESSIN AND NEOSYNEPHRINE. COMATOSE; PUPILS4-5 MM AND EQUALLY NON REACTIVE TO LIGHT. CARDIACSCOPE SHOWS ON SINUS TACHY WITH BBB. HR 119/MIN. ABDOMEN SOFT, OBESE, HYPOACTIVE BOWEL SOUNDS. NGT IN SITU, TUBE FEEDING ON HOLD DUE TO LARGE AMOUNT OF RESIDUALS; INTACT. CARDOZA CATH IN PLACE TO GRAVITY DRAINAGE BAG DRAINING TO SCANTY CLOUDY URINE OUTPUT. WITH PITTING EDEMA NOTED ON BOTH UPPER AND LOWER EXTREMITIES.
--- NOTE | 2021-02-05 19:15 | NUR ---
ENDORSED BEDSIDE REPORT TO SANDEEP RN FOR CONTINUITY OF CARE.
--- NOTE | 2021-02-05 20:10 | NUR ---
HYPOTENSIVE INSPITE ON MAXIMUM DOSES OF 3 VASOPRESSORS LEVOPHED, NEOSYNEPRINE AND VASOPRESSIN SO DOBUTAMINE DRIP STARTED INITIALLY AT 5 MCG/KG/MIN ORDERED PER PROTOCOL.
--- NOTE | 2021-02-05 20:35 | NUR ---
WENT INTO SEVERE BRADYCARDIA HR IN 40'S, THREADY PULSE THEN INTO ASYSTOLE. NO PULSE APPRECIATED. NO CPR INITIATED SINCE THE PATIENT IS DNR.DOCKING SAW OPERATOR JIMENEZ IMMEDIATELY AND HE PRONOUNCED AT 2040H
--- NOTE | 2021-02-05 20:56 | NUR ---
SON ALEJANDRO WAS INFORMED AND NOTIFIED BY TELEPHONE.
--- NOTE | 2021-02-05 22:00 | NUR ---
REPORTED TO [facility] AND TO THE BEE F[employer]ER; BODY RELEASED BY THE BEE FARMER AT 0140 WITHOUT GIVING ANY CASE NUMBER.
--- NOTE | 2021-02-06 08:00 | NUR ---
REMAINS AND BELONGINGS PICKED UP BY JERRY.
== END 2021-02-06 08:00 | DRG 870 ==
LOC: MED 15:17 → MMU 19:28 → MIC 20:40
PROVIDERS: ADMIT Family Medicine; ATTEND Family Medicine
PROC: 5A1955Z Respiratory Ventilation, Greater than 96 Consecutive Hours (ICD-10-PCS; principal; 2021-01-28)
PROC: 0BH17EZ Insertion of Endotracheal Airway into Trachea, Via Natural or Artificial Opening (ICD-10-PCS; 2021-01-28)
PROC: 5A09357 Assistance with Respiratory Ventilation, Less than 24 Consecutive Hours, Continuous Positive Airway Pressure (ICD-10-PCS; 2021-01-28)
PROC: 02HV33Z Insertion of Infusion Device into Superior Vena Cava, Percutaneous Approach (ICD-10-PCS; 2021-01-29)
PROC: B548ZZA Ultrasonography of Superior Vena Cava, Guidance (ICD-10-PCS; 2021-01-29)
PROC: 0W993ZZ Drainage of Right Pleural Cavity, Percutaneous Approach (ICD-10-PCS; 2021-02-01)
DX: A41.9 Sepsis, unspecified organism (principal); J96.01 Acute respiratory failure with hypoxia; J18.9 Pneumonia, unspecified organism; I21.4 Non-ST elevation (NSTEMI) myocardial infarction; E43 Unspecified severe protein-calorie malnutrition; N17.0 Acute kidney failure with tubular necrosis; R65.21 Severe sepsis with septic shock; J45.901 Unspecified asthma with (acute) exacerbation; I24.9 Acute ischemic heart disease, unspecified; E87.1 Hypo-osmolality and hyponatremia; J93.9 Pneumothorax, unspecified; I47.1 Supraventricular tachycardia; C96.9 Malignant neoplasm of lymphoid, hematopoietic and related tissue, unspecified; Z66 Do not resuscitate; I46.9 Cardiac arrest, cause unspecified; I48.0 Paroxysmal atrial fibrillation; I11.0 Hypertensive heart disease with heart failure; I50.814 Right heart failure due to left heart failure; E11.9 Type 2 diabetes mellitus without complications; G40.909 Epilepsy, unspecified, not intractable, without status epilepticus; K80.20 Calculus of gallbladder without cholecystitis without obstruction; N20.0 Calculus of kidney; Z20.822 Contact with and (suspected) exposure to COVID-19; K21.9 Gastro-esophageal reflux disease without esophagitis; M94.0 Chondrocostal junction syndrome [Tietze]; E87.5 Hyperkalemia; I27.20 Pulmonary hypertension, unspecified; Z85.118 Personal history of other malignant neoplasm of bronchus and lung; Z68.36 Body mass index [BMI] 36.0-36.9, adult
CPT/HCPCS: 31500; 36415; 36600; 71045; 71275; 76604; 76942; 80053; 82150; 82803; 82948; 83605; 83690; 83735; 83880; 84100; 84443; 84484; 85025; 85610; 85730; 87040; 87070; 87075; 87081; 87205; 89220; 93005; 93970; 94002; 94003; 94640; 94644; 96365; 96372; 96375; 99291; A4649; C9113; J0282; J0456; J0692; J1100; J1650; J1720; J1815; J1940; J2001; J2060; J2185; J2248; J2250; J2270; J2370; J2543; J2704; J3010; J3370; J3475; J3490; J7030; J7060; J7613; J7626; J7644; P9041; Q0092; Q9967; U0003